=== PATIENT | female | born 1940 | race Caucasian/White ===

== ENCOUNTER 2018-04-10 10:39 | Inpatient (IN) | payer OTHER ==
--- NOTE | 2018-04-10 10:49 | EDPHY ---
H & P Time Seen by Provider: 04/10/18 10:49 HPI/ROS: Chief complaint. Shortness of breath, chest pain HPI. 78-year-old female here by EMS with chest pain and shortness of breath began 1 hr ago. She had previously been on Bystolic for blood pressure but she has been off for 2 months. She has nephrotic syndrome and has had previous pleural effusions with history of thoracentesis. She has had increased leg swelling the past 2 weeks. Chest pain is worse with exertion. She has dyspnea on exertion. No radiation of her chest discomfort. No abdominal pain. Patient is unsure whether she took her blood pressure medication today ROS 10 systems were reviewed and negative with the exception of the elements mentioned in the history of present illness Past Medical/Surgical History: Past medical history significant for nephrotic syndrome with fluid in lungs, dyslipidemia, hypothyroid, hypertension Social History: Single, nonsmoker, no alcohol Physical Exam: General Appearance: Alert well-developed female moderate distress vital signs show elevated blood pressure 191 over 118. Heart rate 112. Eyes: Pupils equal and round no pallor or injection. ENT, Mouth: Mucous membranes are moist. Respiratory: Decreased breath sounds on right. Cardiovascular: Regular rate and rhythm with tachycardia Gastrointestinal: Abdomen is soft and nontender, no masses, bowel sounds normal. Neurological: Awake and alert, sensory and motor exams grossly normal. Skin: Warm and dry, no rashes. Musculoskeletal: Neck is supple nontender. Extremities pedal edema Psychiatric: Patient is oriented X 3, there is no agitation. Constitutional: Initial Vital Signs Temperature (C) 36.4 C 04/10/18 10:49 Heart Rate 112 H 04/10/18 10:49 Respiratory Rate 22 H 04/10/18 10:49 Blood Pressure 191/118 H 04/10/18 10:49 O2 Sat (%) 96 04/10/18 10:49 O2 Delivery Mode Room Air O2 (L/minute) 2 Allergies/Adverse Reactions: No Known Allergies Allergy (Verified 04/10/18 11:41) Home Medications: Medication Instructions Recorded Bumetanide [Bumex (*)] 1 mg PO BID@,18 04/10/18 Cholecalciferol Vit D3 [Vitamin D3 1,000 units PO DAILY 04/10/18 (*)] Levothyroxine [Synthroid 75 mcg 75 mcg PO DAILY 04/10/18 (*)] Multivitamins [Multivitamin (*)] 1 each PO DAILY 04/10/18 PARoxetine HCL [Paxil 10mg (*)] 10 mg PO DAILY 04/10/18 Rosuvastatin Calcium [Crestor 10mg 10 mg PO DAILY18 04/10/18 (RX)] amLODIPine BESYLATE [Norvasc 5 mg 5 mg PO DAILY 04/10/18 (*)] clonIDINE [Catapres (*)] 0.2 mg PO DAILY18 04/10/18 hydrALAZINE [Apresoline 25 mg (RX)] 25 mg PO BID@09,18 04/10/18 Medical Decision Making - Diagnostics EKG Interpretation: EKG interpreted by me shows sinus tachycardia normal interval and axis. QRS is normal there is no significant ST elevation or depression. No arrhythmia. Rate is 112 Imaging Results: Imaging Impressions Chest X-Ray 04/10/18 10:58 Impression: 1. Small right pleural effusion with right lower lobe and middle lobe pneumonia versus atelectasis. 2. Recommend CT chest with contrast evaluation. Procedures: IV normal saline, oxygen, monitor Old records are reviewed and there are none. History is from patient's daughter ED Course/Re-evaluation: On serial evaluations patient actually looks much better with supplemental oxygen. The patient and daughter and I discussed imaging, EKG, laboratory evaluation. We discussed treatment plan including recommendation for admission. She expresses understanding and agreement I consulted discussed case with hospitalist, who agrees to the admission Differential Diagnosis: Right pleural effusion which is apparently recurrent. Likely secondary to nephrotic syndrome. I considered acute coronary syndrome as well. No evidence for pneumonia - Data Points Laboratory Results: Laboratory Results 04/10/18 10:50 04/10/18 10:50 04/10/18 04/10/18 04/10/18 11:02 10:50 10:50 WBC RBC Hgb Hct MCV MCH MCHC RDW Plt Count MPV Neut % (Auto) Lymph % (Auto) [place] % (Auto) Eos % (Auto) Baso % (Auto) Nucleat RBC Rel Count Absolute Neuts (auto) Absolute Lymphs (auto) Absolute Monos (auto) Absolute Eos (auto) Absolute Basos (auto) Absolute Nucleated RBC Immature Gran % Immature Gran # PT REJ INR REJ APTT REJ Sodium Potassium Chloride Carbon Dioxide Anion Gap BUN Creatinine Estimated GFR Glucose Calcium Total Bilirubin 0.2 mg/dL mg/dL (0.1-1.4) POC Troponin I 0.04 ng/mL ng/mL (0.00-0.08) NT-Pro-B Natriuret Pep 04/10/18 04/10/18 10:50 10:50 WBC 8.75 10^3/uL 10^3/uL (3.80-9.50) RBC 4.72 10^6/uL 10^6/uL (4.18-5.33) Hgb 13.8 g/dL g/dL (12.6-16.3) Hct 41.2 % % (38.0-47.0) MCV 87.3 fL fL (81.5-99.8) MCH 29.2 pg pg (27.9-34.1) MCHC 33.5 g/dL g/dL (32.4-36.7) RDW 14.2 % % (11.5-15.2) Plt Count 420 10^3/uL H 10^3/uL (150-400) MPV 9.7 fL fL (8.7-11.7) Neut % (Auto) 57.6 % % (39.3-74.2) Lymph % (Auto) 27.9 % % (15.0-45.0) [place] % (Auto) 12.9 % % (4.5-13.0) Eos % (Auto) 0.2 % L % (0.6-7.6) Baso % (Auto) 0.8 % % (0.3-1.7) Nucleat RBC Rel Count 0.0 % % (0.0-0.2) Absolute Neuts (auto) 5.04 10^3/uL 10^3/uL (1.70-6.50) Absolute Lymphs (auto) 2.44 10^3/uL 10^3/uL (1.00-3.00) Absolute Monos (auto) 1.13 10^3/uL H 10^3/uL (0.30-0.80) Absolute Eos (auto) 0.02 10^3/uL L 10^3/uL (0.03-0.40) Absolute Basos (auto) 0.07 10^3/uL 10^3/uL (0.02-0.10) Absolute Nucleated RBC 0.00 10^3/uL 10^3/uL (0-0.01) Immature Gran % 0.6 % % (0.0-1.1) Immature Gran # 0.05 10^3/uL 10^3/uL (0.00-0.10) PT INR APTT Sodium 134 mEq/L L mEq/L (135-145) Potassium 3.5 mEq/L mEq/L (3.5-5.2) Chloride 108 mEq/L mEq/L (97-110) Carbon Dioxide 24 mEq/l mEq/l (22-31) Anion Gap 2 mEq/L L mEq/L (6-14) BUN 15 mg/dL mg/dL (7-23) Creatinine 1.0 mg/dL mg/dL (0.6-1.0) Estimated GFR 54 Glucose 97 mg/dL mg/dL (70-100) Calcium 8.5 mg/dL mg/dL (8.5-10.4) Total Bilirubin POC Troponin I NT-Pro-B Natriuret Pep 822 pg/mL H pg/mL (0-450) Point of Care Test Results: Chemistry 04/10/18 11:02 POC Troponin I 0.04 ng/mL ng/mL (0.00-0.08) Departure - Departure Disposition: [facility] Inpatient Acute Clinical Impression: Pleural effusion Chest pain Qualifiers: Chest pain type: unspecified Qualified Code(s): R07.9 - Chest pain, unspecified Condition: Serious
[2018-04-10 11:07] LABS: PLATELET COUNT 420 10^3/uL (150-400)
[2018-04-10 12:56] LABS: INR 0.88 (0.83-1.16); PROTIME(PATIENT) 12.2 SEC (12.0-15.0)
[2018-04-10] MEDS ORDERED: ONDANSETRON 4 MG/2 ML VIAL IVP PRN (13:41)
[2018-04-10] MEDS ORDERED: oxyCODONE IR 5 MG TAB PO PRN (13:41)
--- NOTE | 2018-04-10 14:15 | PDGENHP ---
History and Physical - Chief Complaint shortness of breath - History of Present Illness 78yo F with nephrotic syndrome, dementia, HTN, prior right pleural effusion presents with acute onset shortness of breath this morning. Patient not reliable historian, daughter provides some ancillary history. She has intermittently complained of shortness of breath since moving from [place] to [place] in January. This morning had acute change and having trouble catching her breath. She has had worsening swelling in both legs for several weeks. Denies chest pain, pleuritic pain, orthopnea. No cough or fevers/chills. She has not yet established with a manager deli in the area. Daughter reports that pleural effusion on right was drained 07/2017. It was thought that this was related to her nephrotic syndrome. In the ED, she was noted to be tachycardic. A CXR shows a right sided moderate sized pleural effusion. She is being admitted for further diagnostics and evaluation. History Information - Allergies/Home Medication List Allergies/Adverse Reactions: No Known Allergies Allergy (Verified 04/10/18 11:41) Home Medications: Bumetanide [Bumex (*)] 1 mg PO BID@,04/10/18 [Last Taken 04/10/18 09:00] Cholecalciferol Vit D3 [Vitamin D3 (*)] 1,000 units PO DAILY 04/10/18 [Last Taken Unknown] Levothyroxine [Synthroid 75 mcg (*)] 75 mcg PO DAILY 04/10/18 [Last Taken ] Multivitamins [Multivitamin (*)] 1 each PO DAILY 04/10/18 [Last Taken Unknown] PARoxetine HCL [Paxil 10mg (*)] 10 mg PO DAILY 04/10/18 [Last Taken 04/10/18] Rosuvastatin Calcium [Crestor 10mg (RX)] 10 mg PO DAILY18 04/10/18 [Last Taken 04/09/18] amLODIPine BESYLATE [Norvasc 5 mg (*)] 5 mg PO DAILY 04/10/18 [Last Taken ] clonIDINE [Catapres (*)] 0.2 mg PO DAILY18 04/10/18 [Last Taken 04/09/18] hydrALAZINE [Apresoline 25 mg (RX)] 25 mg PO BID@,18 04/10/18 [Last Taken 09:00] I have personally reviewed and updated: family history, medical history, social history, surgical history - Past Medical History Additional medical history: per HPI in addition to hyperlipidemia, depression - Surgical History Reports: no pertinent surgical hx - Family History Additional family history: mother and father both with CAD s/p CABG, HTN. no history of kidney disease - Social History Smoking Status: Former smoker Alcohol Use: None Drug Use: Marijuana Additional social history: Lives independently at [place]. Daughter is MDPOA. Review of Systems Review of Systems: ROS: 10pt was reviewed & negative except for what was stated in HPI & below Physical Exam Physical Exam: Temp Pulse Resp BP Pulse Ox 36.3 C 77 18 166/89 H 97 04/10/18 13:34 04/10/18 13:34 04/10/18 13:34 04/10/18 13:34 04/10/18 13:34 O2 (L/minute) 2 Constitutional: no apparent distress, appears nourished, not in pain Eyes: PERRL, anicteric sclera, EOMI Ears, Nose, Mouth, Throat: moist mucous membranes, hearing normal, ears appear normal, no oral mucosal ulcers Cardiovascular: regular rate and rhythym, no murmur, rub, or gallop, edema (R>L) Respiratory: no respiratory distress, reduced air movement (right base), No expiratory wheeze, No inspiratory crackles Gastrointestinal: normoactive bowel sounds, soft, non-tender abdomen, no palpable masses Genitourinary: no bladder fullness, no bladder tenderness Skin: warm, normal color, no rashes or abrasions, no fluctuance, no induration, No mottled Musculoskeletal: full muscle strength, no muscle tenderness, normal joint ROM, no joint effusions Neurologic: other (alert, not oriented) Psychiatric: encephalopathic Lab Data & Imaging Review 04/10/18 10:50 04/10/18 10:50 WBC 8.75 10^3/uL (3.80-9.50) 04/10/18 10:50 RBC 4.72 10^6/uL (4.18-5.33) 04/10/18 10:50 Hgb 13.8 g/dL (12.6-16.3) 04/10/18 10:50 Hct 41.2 % (38.0-47.0) 04/10/18 10:50 MCV 87.3 fL (81.5-99.8) 04/10/18 10:50 MCH 29.2 pg (27.9-34.1) 04/10/18 10:50 MCHC 33.5 g/dL (32.4-36.7) 04/10/18 10:50 RDW 14.2 % (11.5-15.2) 04/10/18 10:50 Plt Count 420 10^3/uL (150-400) H 04/10/18 10:50 MPV 9.7 fL (8.7-11.7) 04/10/18 10:50 Neut % (Auto) 57.6 % (39.3-74.2) 04/10/18 10:50 Lymph % (Auto) 27.9 % (15.0-45.0) 04/10/18 10:50 Hunt % (Auto) 12.9 % (4.5-13.0) 04/10/18 10:50 Eos % (Auto) 0.2 % (0.6-7.6) L 04/10/18 10:50 Baso % (Auto) 0.8 % (0.3-1.7) 04/10/18 10:50 Nucleat RBC Rel Count 0.0 % (0.0-0.2) 04/10/18 10:50 Absolute Neuts (auto) 5.04 10^3/uL (1.70-6.50) 04/10/18 10:50 Absolute Lymphs (auto) 2.44 10^3/uL (1.00-3.00) 04/10/18 10:50 Absolute Monos (auto) 1.13 10^3/uL (0.30-0.80) H 04/10/18 10:50 Absolute Eos (auto) 0.02 10^3/uL (0.03-0.40) L 04/10/18 10:50 Absolute Basos (auto) 0.07 10^3/uL (0.02-0.10) 04/10/18 10:50 Absolute Nucleated RBC 0.00 10^3/uL (0-0.01) 04/10/18 10:50 Immature Gran % 0.6 % (0.0-1.1) 04/10/18 10:50 Immature Gran # 0.05 10^3/uL (0.00-0.10) 04/10/18 10:50 PT 12.2 SEC (12.0-15.0) 04/10/18 12:30 INR 0.88 (0.83-1.16) 04/10/18 12:30 APTT 33.5 SEC (23.0-38.0) 04/10/18 12:30 D-Dimer 2.43 ug/mLFEU (0.00-0.50) H 04/10/18 12:30 VBG Lactic Acid 0.8 mmol/L (0.7-2.1) 04/10/18 11:55 Sodium 134 mEq/L (135-145) L 04/10/18 10:50 Potassium 3.5 mEq/L (3.5-5.2) 04/10/18 10:50 Chloride 108 mEq/L (97-110) 04/10/18 10:50 Carbon Dioxide 24 mEq/l (22-31) 04/10/18 10:50 Anion Gap 2 mEq/L (6-14) L 04/10/18 10:50 BUN 15 mg/dL (7-23) 04/10/18 10:50 Creatinine 1.0 mg/dL (0.6-1.0) 04/10/18 10:50 Estimated GFR 54 04/10/18 10:50 Glucose 97 mg/dL (70-100) 04/10/18 10:50 Calcium 8.5 mg/dL (8.5-10.4) 04/10/18 10:50 Total Bilirubin 0.2 mg/dL (0.1-1.4) 04/10/18 10:50 POC Troponin I 0.04 ng/mL (0.00-0.08) 04/10/18 11:02 NT-Pro-B Natriuret Pep 822 pg/mL (0-450) H 04/10/18 10:50 Interpretation: CXR: right pleural effusion, mild increase in pulmonary vascularity EKG additional interpertation: ECG: sinus tachycardia, no right heart strain or ischemic changes Assessment & Plan Assessment: 78yo F with nephrotic syndrome, dementia, HTN, prior right pleural effusion presents with acute onset shortness of breath this morning found to have pleural effusion and elevated d-dimer. Plan: 1. Dyspnea: With acute onset, elevated d-dimer, nephrotic syndrome, and pleural effusion, necessary to rule out PE. CT will also give us more information on pleural effusion. - CTA chest - May need thoracentesis pending above 2. Bilateral leg edema: R>L - Check doppler ultrasound and TTE - Continue home diuretic for now, consider switching to IV pending results of CTA 3. HTN: BP markedly elevated on admit. - Resume home meds, hydralazine PRN 4. ? Nephrotic syndrome: Creatinine 1.0 - Check urine protein and creatinine - Has renal follow up 05/09 with [facility] 5. Dementia: At baseline per daughter. 6. Hypothyroid: Home LT4 replacement. VTE ppx: LMWH Code: full per discussion today Diet: regular Dispo: Admit under observation
[2018-04-10] MEDS ORDERED: IOHEXOL 350mgI/ML (OMNIPAQUE) 150 ML BTL IV ONE (14:50)
--- NOTE | 2018-04-10 15:06 | CPEKG ---
Test Reason : OPEN Blood Pressure : / mmHG Vent. Rate : 112 BPM Atrial Rate : 113 BPM P-R Int : 119 ms QRS Dur : 091 ms QT Int : 395 ms P-R-T Axes : 056 045 045 degrees QTc Int : 540 ms Sinus tachycardia Nonspecific repol abnormality, diffuse leads Prolonged QT interval Confirmed by Philipp Simpson ([id number]) on 04/10/2018 3:06:10 PM Referred By: Philipp Simpson Confirmed By:Philipp Simpson
--- NOTE | 2018-04-10 16:31 | ECHO ---
[email or web address] [address] Main: [phone] Fax: [email or web address] Echocardiogram Name: ZULEYMA WILDER MR#: [id number] Study Date: 04/10/2018 Study Time: 02:44 PM Date of : 1940 Age: 78 year(s) Height: 160 cm (63 in.) Weight: 56.25 kg (124 lb.) BSA: 1.58 m2 Gender: Female Examination: Echo Indication: Shortness of breath, Known pleural effusion. Image Quality: Contrast: Requested by: Behzad Black BP: / Heart Rate: Rhythm: Indication: Shortness of breath, Known pleural effusion. Procedure Staff Community Organizer: Ryley Brennan RDCS Reading Physician: Kareem Rodriguez MD Requesting Provider: Conclusions: Normal size left ventricle. Global hypercontractility of the left ventricle. EF is 75 %. No regional wall motion abnormality. Grade 1 diastolic dysfunction (abnormal relaxation). Normal RV function. The left atrium is mildly dilated. The right atrium is normal in size. Mild mitral valve regurgitation is present. There is no aortic valve regurgitation. No aortic valve stenosis is present. There is a small circumfrential pericardial effusion with echogenicity within. There is no evidence of tamponade. Measurements: Chambers Valvular Assessment AV/MV Valvular Assessment TV/PV Normal Normal Normal Name Value Range Name Value Range Name Value Range Ao Ebony (MM): 2.7 cm (2.2 cm-3.7 AV Vmax: 1.53 m/s (1 m/s-1.7 PV Vmax: 1.48 m/s (0.6 m/s-0.9 cm) m/s) m/s) IVSd (2D): 0.8 cm (0.6 cm-1.1 AV maxP mmHg ( - ) PV PGmax: 9 mmHg ( - ) cm) LVOT Vmax: 1.03 m/s (0.7 m/s-1.1 LVDd (2D): 3.4 cm (3.9 cm-5.3 m/s) cm) MV E Vmax: 0.60 m/s ( - ) LVDs (2D): 2.0 cm (2.1 cm-4 MV A Vmax: 1.10 m/s ( - ) cm) MV E/A: 0.55 ( - ) LVPWd (2D): 0.9 cm ( - ) LVEF (2D): 75 (>=54 %) Continued Measurements: Patient: ZULEYMA WILDER Study Date: 04/10/2018 Page 1 of 2 02:44 PM Chambers Valvular Assessment AV/MV Name Value Name Value LADs Lon.9 cm MV E' Septal: 0.05 m/s LA Area: 18.2 cm2 MV E/E' Septal: 13.10 LA Volume: 53 ml MV E/E' Lateral: 13.70 LA Volume Index: 33.5 ml/m2 Findings: Left Ventricle: Normal size left ventricle. No LV hypertrophy. Global hypercontractility of the left ventricle. EF is 75 %. No regional wall motion abnormality. Grade 1 diastolic dysfunction (abnormal relaxation). Right Ventricle: Normal size right ventricle. Normal RV function. Left Atrium: The left atrium is mildly dilated. Right Atrium: The right atrium is normal in size. Mitral Valve: There is mild thickening of the mitral valve leaflets. Mild mitral annular calcification. Mild mitral valve regurgitation is present. Aortic Valve: The aortic valve is tri-leaflet. Moderate aortic cusp calcification is present. There is no aortic valve regurgitation. No aortic valve stenosis is present. Tricuspid Valve: The tricuspid valve is normal in appearance and function. Pulmonary artery pressure is not obtained due to inadequate TR jet. Pulmonic Valve: The pulmonic valve is normal in appearance and function. Aorta: The aorta is normal. Pericardium: There is a small circumfrential pericardial effusion with echogenicity within. There is no evidence of tamponade. (No Signature Object) Patient: ZULEYMA WILDER Study Date: 04/10/2018 Page 2 of 2 02:44 PM [id number]
[2018-04-10] MEDS: BUMETANIDE 1 MG TAB PO SCH (17:52)
[2018-04-10] MEDS: ROSUVASTATIN CALCIUM 10 MG TAB PO SCH (17:54)
[2018-04-10] MEDS ORDERED: hydrALAZINE 25 MG TAB PO SCH (18:00)
[2018-04-10] MEDS: MELATONIN 3 MG TAB PO SCH (22:34)
[2018-04-10] MEDS: hydrALAZINE 25 MG TAB PO PRN (23:25)
[2018-04-11 05:45] LABS: PLATELET COUNT 269 10^3/uL (150-400)
[2018-04-11] MEDS: ENOXAPARIN 40 MG/0.4 ML SYR SC SCH (07:55)
[2018-04-11] MEDS: BUMETANIDE 1 MG TAB PO SCH ×2 (07:59→17:23)
[2018-04-11] MEDS: LEVOTHYROXINE 75 MCG TAB PO SCH (07:59)
[2018-04-11] MEDS: PARoxetine HCL 10 MG TAB PO SCH (07:59)
[2018-04-11] MEDS: amLODIPine BESYLATE 5 MG TAB PO SCH (07:59)
[2018-04-11] MEDS: hydrALAZINE 25 MG TAB PO PRN (10:35)
[2018-04-11] MEDS ORDERED: LIDOCAINE 1% 300 MG/30 ML SDV ONE (11:23)
--- NOTE | 2018-04-11 12:04 | HOSPPROG ---
Hospitalist Progress Note Assessment/Plan: 78yo F with nephrotic syndrome, dementia, HTN, prior right pleural effusion presents with acute onset shortness of breath this morning found to have pleural effusion and elevated d-dimer. 1. Dyspnea: Suspect r/t pleural effusion as she's had drained before with symptomatic improvement. She is not hypoxic. - Planning on diagnostic + therapeutic thoracentesis today 2. Bilateral pleural effusions: R>L. Recurrent issue. D/t nephrosis + diastolic dysfunction. - Thoracentesis as above. Sending for usual studies and cytology 3. Nephrotic syndrome: Creatinine 1.0-1.1. Spot urine protein:Cr >10. - Starting lisinopril 10mg daily - Has renal follow up 05/09 with [facility] 4. Diastolic dysfunction: Noted on TTE - Start lasix 20mg PO daily tomorrow 5. HTN: Worsened today - Adding ACEi, continue home meds, hydralazine PRN 6. Dementia: At baseline per daughter. 7. Hypothyroid: Home LT4 replacement. VTE ppx: LMWH Code: full Diet: regular Dispo: Switch to inpatient. Possibly discharge tomorrow. Subjective: Still short of breath this morning. Denies chest pain. CT negative for PE. Objective: Vital Signs Temp Pulse Resp BP Pulse Ox 36.6 C 89 18 178/96 H 96 04/11/18 11:23 04/11/18 11:23 04/11/18 11:23 04/11/18 11:23 04/11/18 11:23 Microbiology 04/10/18 18:32 Respiratory Panel (PCR) - Final Nasal, Sinus - Swab No Organism Detected By Pcr Laboratory Results 04/11/18 05:13 04/11/18 05:13 04/10/18 04/11/18 04/12/18 05:59 05:59 05:59 Intake Total 650 Output Total 800 100 Balance -150 -100 PT 12.2 SEC (12.0-15.0) 04/10/18 12:30 INR 0.88 (0.83-1.16) 04/10/18 12:30 - Physical Exam Constitutional: no apparent distress, appears nourished, not in pain Eyes: PERRL, anicteric sclera, EOMI Ears, Nose, Mouth, Throat: moist mucous membranes, hearing normal, ears appear normal, no oral mucosal ulcers Cardiovascular: regular rate and rhythym, no murmur, rub, or gallop Respiratory: no respiratory distress, reduced air movement (decreased at right base) Gastrointestinal: normoactive bowel sounds, soft, non-tender abdomen, no palpable masses Genitourinary: no bladder fullness, no bladder tenderness, no renal bruits Skin: no rashes or abrasions, no fluctuance, no induration Musculoskeletal: full muscle strength Neurologic: other (alert, intermittently disoriented) Psychiatric: encephalopathic ICD10 Worksheet Patient Problems: Problems Problem Status Onset Chest pain Acute Pleural effusion Acute
[2018-04-11] MEDS: LISINOPRIL 10 MG TAB PO SCH (14:10)
[2018-04-11] MEDS ORDERED: hydrALAZINE 25 MG TAB PO PRN (15:36)
--- NOTE | 2018-04-11 16:39 | ASMTCMCOM ---
CM Note CM Note Notes: Pt admitted to hospital for pleural effusion. She is from [place] but has recently moved to [place]. She lives at [facility] and has dementia. She has a caregiver come once a week to walk her and help with laundry. Per PT/OT may need homecare, CM to discuss with daughter DC Plan: Homecare Date Signed: 04/11/2018 04:39 PM Electronically Signed By:Jeannie Fernandez RN
[2018-04-11] MEDS: ROSUVASTATIN CALCIUM 10 MG TAB PO SCH (17:23)
--- NOTE | 2018-04-11 18:24 | PDMN ---
Medical Necessity Medical necessity: [facility] M540 Pleural Effusion, A-2days: 78 yo initially presented w/ SOB dx w/ B/L pleural effusions w/ R>L, recurrent, requiring thoracentesis. BC and aspirate cx/gram stain pending, pt consistently hypertensive today 190s/100s and MD notes state pt still dyspneac this morning requiring additional MN for monitoring and tx. Hx nephrotic syndrome, dementia , HTN, prior R pleural effusion, diastolic dysfunction. Change to IP status @1721 per MD order
[2018-04-11] MEDS: MELATONIN 3 MG TAB PO SCH (22:49)
[2018-04-12] MEDS: FUROSEMIDE 20 MG TAB PO SCH (08:37)
[2018-04-12] MEDS: amLODIPine BESYLATE 5 MG TAB PO SCH (08:38)
[2018-04-12] MEDS: PARoxetine HCL 10 MG TAB PO SCH (08:38)
[2018-04-12] MEDS: LEVOTHYROXINE 75 MCG TAB PO SCH (08:38)
[2018-04-12] MEDS: BUMETANIDE 1 MG TAB PO SCH ×2 (08:38→17:02)
[2018-04-12] MEDS: LISINOPRIL 10 MG TAB PO SCH (08:38)
[2018-04-12] MEDS: ENOXAPARIN 40 MG/0.4 ML SYR SC SCH (08:41)
[2018-04-12] MEDS: ONDANSETRON DISINTEGRATING 4 MG TAB PO PRN ×2 (08:53→13:07)
--- NOTE | 2018-04-12 13:59 | HOSPPROG ---
Hospitalist Progress Note Assessment/Plan: 78yo F with nephrotic syndrome, dementia, HTN, prior right pleural effusion presents with acute onset shortness of breath found to have pleural effusion and elevated d-dimer. First encounter, chart reviewed. #Dyspnea: - Resolved - Suspect r/t pleural effusion - diagnostic + therapeutic thoracentesis performed #Bilateral pleural effusions: - R>L. Recurrent issue. D/t nephrosis + diastolic dysfunction. - Thoracentesis done Sending for usual studies and cytology - transdutative, cx pending - start lasix, is already on bumex at home #Dizzy - in setting of decreased BP from normal - cont supportive care #Nephrotic syndrome: - Creatinine 1.0-1.1. Spot urine protein:Cr >10. - Started lisinopril 10mg daily - Has renal follow up 05/09 with [facility] #Diastolic dysfunction: - Noted on TTE - Start lasix 20mg PO daily today #HTN: - improving - ACEi, continue home meds, hydralazine PRN, lasix #Dementia: - At baseline #Hypothyroid: - Home LT4 replacement VTE ppx: LMWH Code: full Diet: regular Dispo: Switch to inpatient. Possibly discharge tomorrow. Subjective: Up to bedside commode. C/O some nausea. No pain. Objective: Vital Signs Temp Pulse Resp BP Pulse Ox 36.7 C 95 16 132/90 H 91 L 04/12/18 11:51 04/12/18 11:51 04/12/18 11:51 04/12/18 11:51 04/12/18 11:51 Laboratory Results 04/12/18 04:52 04/11/18 04/12/18 04/13/18 05:59 05:59 05:59 Intake Total 662 Output Total 275 400 Balance 387 -400 PT 12.2 SEC (12.0-15.0) 04/10/18 12:30 INR 0.88 (0.83-1.16) 04/10/18 12:30 - Physical Exam Constitutional: appears nourished, not in pain, chronically ill appearing Eyes: PERRL, anicteric sclera, EOMI Ears, Nose, Mouth, Throat: moist mucous membranes, hearing normal, ears appear normal Cardiovascular: regular rate and rhythym, edema, No JVD Respiratory: no respiratory distress, no rales or rhonchi, reduced air movement Gastrointestinal: normoactive bowel sounds, No tenderness, No ascites Skin: warm, normal color, No mottled Musculoskeletal: normal joint ROM, no joint effusions, generalized weakness Psychiatric: not anxious, not encephalopathic, poor insight, poor judgement, poor memory ICD10 Worksheet Patient Problems: Problems Problem Status Onset Chest pain Acute Pleural effusion Acute
[2018-04-12] MEDS: ROSUVASTATIN CALCIUM 10 MG TAB PO SCH (17:03)
[2018-04-12] MEDS: MELATONIN 3 MG TAB PO SCH (20:45)
[2018-04-13] MEDS: PARoxetine HCL 10 MG TAB PO SCH (08:18)
[2018-04-13] MEDS: amLODIPine BESYLATE 5 MG TAB PO SCH (08:18)
[2018-04-13] MEDS: BUMETANIDE 1 MG TAB PO SCH ×2 (08:18→18:19)
[2018-04-13] MEDS: ENOXAPARIN 40 MG/0.4 ML SYR SC SCH (08:18)
[2018-04-13] MEDS: LEVOTHYROXINE 75 MCG TAB PO SCH (08:18)
[2018-04-13] MEDS: FUROSEMIDE 20 MG TAB PO SCH (08:18)
[2018-04-13] MEDS: LISINOPRIL 10 MG TAB PO SCH (08:18)
--- NOTE | 2018-04-13 11:47 | PDCONSULT ---
Ribbon Tier Note: Assessment/Plan: Nephrotic syndrome: pt with nephrotic range proteinuria on urine PCR, Cr stable at 1.0, unknown baseline. - Will treat BP as below. - Will check albumin. - Will start serological workup, including ALLAN, ANCA, RF, anti-GBM, SPEP/UPEP ( noted low anion gap). - Will check renal US. - Pt will likely need a renal biopsy at some time for diagnosis. - Will continue to monitor. HTN: uncontrolled and labile, likely as she has been getting clonidine orally only once daily. - Will d/c clonidine. - Will increase lisinopril. - Will restart on hydralazine at TID dosing, dose can be increased if needed. - Will d/c Lasix as pt is on Bumex, that dosage can be adjusted if needed. - Can increase amlodipine also if needed. Thank you for the interesting consult. Nephrology will continue to follow, please call if you have any additional questions or concerns. H & P Stated Complaint: Upper abdo pn with breathing, tachypnic and shallow, good skin params Time Seen by Provider: 04/10/18 10:49 HPI/ROS: HPI: Ms. Gloria is a 78 yo F with h/o HTN and pleural effusion who presented to ER with complaints of dyspnea. Pt is not a good historian, history obtained from chart. Pt reportedly moved here from [place] in January. In 07/2017, she had a pleural effusion that was drained, was thought to be due to nephrotic syndrome. Pt states that she has heard she had proteinuria but not sure how long or how severe, was set up for new appointment with Dr. Rubi in clinic on 05/09/18. Pt was found again to have R sided effusion, was drained and she is feeling better. She indeed does have nephrotic syndrome, Cr stable around 1.0 currently. She denies any swelling in legs, rash, NSAID use, but she is very unclear on all of it. Her BP has been elevated and labile, her home hydralazine has been held and she is getting clonidine only once a day, may have been her home regimen. ROS: positive per HPI, rest of 10-point ROS negative Source: Patient, RN/MD - Personal History Current Tetanus/Diphtheria Vaccine: Unsure - Medical/Surgical History Hx Asthma: No Hx Chronic Respiratory Disease: No Hx Diabetes: No Hx Cardiac Disease: No Hx Renal Disease: No Hx Cirrhosis: No Hx Alcoholism: No Hx HIV/AIDS: No Hx Splenectomy or Spleen Trauma: No Other PMH: Anxiety, nephrotic syndrome, HTN, abnormal retina tissue bilaterally , right hip replacement - Family History Significant Family History: No pertinent family hx - Social History Smoking Status: Former smoker - Physical Exam Exam: General: alert and oriented, no acute distress Eyes: EOMI, PERRL OP: Clear, MMM CV: RRR, +1 edema BLE Resp: nonlabored respirations on RA, CTAB Abd: Soft, NT/ND Neuro: CN II-XII grossly intact, no asterixis Psych: cooperative, appropriate mood and affect Skin: C/D/I, no rash Constitutional: Initial Vital Signs Temperature (C) 36.4 C 04/10/18 10:49 Heart Rate 112 H 04/10/18 10:49 Respiratory Rate 22 H 04/10/18 10:49 Blood Pressure 191/118 H 04/10/18 10:49 O2 Sat (%) 96 04/10/18 10:49 O2 Delivery Mode Room Air O2 (L/minute) 1.5 Allergies/Adverse Reactions: No Known Allergies Allergy (Verified 04/10/18 11:41) Home Medications: Medication Instructions Recorded Bumetanide [Bumex (*)] 1 mg PO BID@,18 04/10/18 Cholecalciferol Vit D3 [Vitamin D3 1,000 units PO DAILY 04/10/18 (*)] Levothyroxine [Synthroid 75 mcg 75 mcg PO DAILY 04/10/18 (*)] Multivitamins [Multivitamin (*)] 1 each PO DAILY 04/10/18 PARoxetine HCL [Paxil 10mg (*)] 10 mg PO DAILY 04/10/18 Rosuvastatin Calcium [Crestor 10mg 10 mg PO DAILY18 04/10/18 (RX)] amLODIPine BESYLATE [Norvasc 5 mg 5 mg PO DAILY 04/10/18 (*)] clonIDINE [Catapres (*)] 0.2 mg PO DAILY18 04/10/18 hydrALAZINE [Apresoline 25 mg (RX)] 25 mg PO BID@09,18 04/10/18 Lab and Imaging 04/11/18 05:13 04/12/18 04:52 WBC 5.92 10^3/uL (3.80-9.50) 04/11/18 05:13 RBC 3.82 10^6/uL (4.18-5.33) L 04/11/18 05:13 Hgb 11.0 g/dL (12.6-16.3) L 04/11/18 05:13 Hct 34.4 % (38.0-47.0) L 04/11/18 05:13 MCV 90.1 fL (81.5-99.8) 04/11/18 05:13 MCH 28.8 pg (27.9-34.1) 04/11/18 05:13 MCHC 32.0 g/dL (32.4-36.7) L 04/11/18 05:13 RDW 14.3 % (11.5-15.2) 04/11/18 05:13 Plt Count 269 10^3/uL (150-400) 04/11/18 05:13 MPV 9.9 fL (8.7-11.7) 04/11/18 05:13 Neut % (Auto) 59.7 % (39.3-74.2) 04/11/18 05:13 Lymph % (Auto) 26.0 % (15.0-45.0) 04/11/18 05:13 [place] % (Auto) 12.5 % (4.5-13.0) 04/11/18 05:13 Eos % (Auto) 0.5 % (0.6-7.6) L 04/11/18 05:13 Baso % (Auto) 0.8 % (0.3-1.7) 04/11/18 05:13 Nucleat RBC Rel Count 0.0 % (0.0-0.2) 04/11/18 05:13 Absolute Neuts (auto) 3.53 10^3/uL (1.70-6.50) 04/11/18 05:13 Absolute Lymphs (auto) 1.54 10^3/uL (1.00-3.00) 04/11/18 05:13 Absolute Monos (auto) 0.74 10^3/uL (0.30-0.80) 04/11/18 05:13 Absolute Eos (auto) 0.03 10^3/uL (0.03-0.40) 04/11/18 05:13 Absolute Basos (auto) 0.05 10^3/uL (0.02-0.10) 04/11/18 05:13 Absolute Nucleated RBC 0.00 10^3/uL (0-0.01) 04/11/18 05:13 Immature Gran % 0.5 % (0.0-1.1) 04/11/18 05:13 Immature Gran # 0.03 10^3/uL (0.00-0.10) 04/11/18 05:13 PT 12.2 SEC (12.0-15.0) 04/10/18 12:30 INR 0.88 (0.83-1.16) 04/10/18 12:30 APTT 33.5 SEC (23.0-38.0) 04/10/18 12:30 D-Dimer 2.43 ug/mLFEU (0.00-0.50) H 04/10/18 12:30 VBG Lactic Acid 0.8 mmol/L (0.7-2.1) 04/10/18 11:55 Sodium 131 mEq/L (135-145) L 04/12/18 04:52 Potassium 3.9 mEq/L (3.5-5.2) 04/12/18 04:52 Chloride 108 mEq/L (97-110) 04/12/18 04:52 Carbon Dioxide 23 mEq/l (22-31) 04/12/18 04:52 Anion Gap 0 mEq/L (6-14) L 04/12/18 04:52 BUN 18 mg/dL (7-23) 04/12/18 04:52 Creatinine 1.0 mg/dL (0.6-1.0) 04/12/18 04:52 Estimated GFR 54 04/12/18 04:52 Glucose 86 mg/dL (70-100) 04/12/18 04:52 Calcium 7.9 mg/dL (8.5-10.4) L 04/12/18 04:52 Total Bilirubin 0.2 mg/dL (0.1-1.4) 04/10/18 10:50 Lactate Dehydrogenase 452 IU/L (313-618) 04/11/18 05:13 POC Troponin I 0.04 ng/mL (0.00-0.08) 04/10/18 11:02 NT-Pro-B Natriuret Pep 822 pg/mL (0-450) H 04/10/18 10:50 Total Protein 3.6 g/dL (6.3-8.2) L 04/11/18 05:13 Ur Random Creatinine 195.3 mg/dL 04/10/18 17:42 U Random Total Protein > 2000 mg/dL (0-11) H 04/10/18 17:42 Fluid pH Cancelled 04/11/18 14:30 Fluid [place] % 27 % 04/11/18 14:30 Fl Pathologist Review César CLEARY MD 04/11/18 14:30 Fluid Total Protein Cancelled 04/10/18 14:30 Pleural Fluid Source PLEURAL 04/11/18 14:30 Pleural Color STRAW (STRAW/YELL) 04/11/18 14:30 Pleural Appearance CLEAR (CLEAR) 04/11/18 14:30 Pleural pH 7.6 (6.8-7.6) 04/11/18 14:30 Pleural WBC 58 /mm3 04/11/18 14:30 Pleural RBC 217 /MM3 04/11/18 14:30 Pleural Neutrophils 3 % 04/11/18 14:30 Pleural Lymphocytes % 70 % 04/11/18 14:30 Pleural Total Protein < 2.0 g/dL 04/11/18 14:30 Pleural LDH 212 IU/L 04/11/18 14:30 Pleural Glucose 91 mg/dL (55-113) 04/11/18 14:30 Cytology RECEIVED 04/11/18 14:30
[2018-04-13] MEDS: hydrALAZINE 10 MG TAB PO SCH ×3 (13:24→20:58)
--- NOTE | 2018-04-13 14:33 | HOSPPROG ---
Hospitalist Progress Note Assessment/Plan: 78yo F with nephrotic syndrome, dementia, HTN, prior right pleural effusion presents with acute onset shortness of breath found to have pleural effusion and elevated d-dimer. #Dyspnea: - Resolved - Suspect r/t pleural effusion - diagnostic + therapeutic thoracentesis performed #Bilateral pleural effusions: - R>L. Recurrent issue. D/t nephrosis + diastolic dysfunction. - Thoracentesis done sent for usual studies and cytology - transudative, cx NGTD - already on bumex at home #Dizzy - in setting of decreased BP from normal - cont supportive care - nephrology consult #Nephrotic syndrome: - nephrology consult, D/W Dr Monge - Creatinine 1.0-1.1. Spot urine protein:Cr >10. - lisinopril 10mg daily - Has renal follow up 05/09 with [facility] - labs ordered - renal US - Pt will likely need a renal biopsy at some time for diagnosis. #HTN: - uncontrolled and labile -See nephrology recs #Diastolic dysfunction: - Noted on TTE #Dementia: - At baseline #Hypothyroid: - Home LT4 replacement VTE ppx: LMWH Code: full Diet: regular Dispo: D/W Pt and daughter Subjective: Still feeling dizzy. No pain. Not feeling well Objective: Vital Signs Temp Pulse Resp BP Pulse Ox 36.8 C 77 16 172/75 H 90 L 04/13/18 11:29 04/13/18 11:29 04/13/18 11:29 04/13/18 11:29 04/13/18 11:29 Laboratory Results 04/12/18 04:52 04/12/18 04/13/18 04/14/18 05:59 05:59 05:59 Intake Total 662 400 Output Total 275 750 300 Balance 387 -350 -300 PT 12.2 SEC (12.0-15.0) 04/10/18 12:30 INR 0.88 (0.83-1.16) 04/10/18 12:30 - Physical Exam Constitutional: chronically ill appearing, uncomfortable, cachectic Eyes: PERRL, anicteric sclera, EOMI Ears, Nose, Mouth, Throat: moist mucous membranes, hearing normal, ears appear normal Cardiovascular: regular rate and rhythym, edema, No JVD Respiratory: no respiratory distress, no rales or rhonchi, reduced air movement Gastrointestinal: normoactive bowel sounds, No tenderness, No ascites Skin: warm, normal color, No mottled Musculoskeletal: normal joint ROM, no joint effusions, generalized weakness Neurologic: AAOx3 Psychiatric: interacting appropriately, poor insight, poor judgement, poor memory ICD10 Worksheet Patient Problems: Problems Problem Status Onset Chest pain Acute Pleural effusion Acute
[2018-04-13 18:10] LABS: HEPATITIS B CORE AB TOTAL NEGATIVE (NEGATIVE)
[2018-04-13] MEDS: ROSUVASTATIN CALCIUM 10 MG TAB PO SCH (18:19)
[2018-04-13 19:33] LABS: HEPATITIS B SURFACE ANTIGEN NEGATIVE (NEGATIVE); HEPATITIS C ANTIBODY TOTAL NEGATIVE (NEGATIVE)
[2018-04-13] MEDS: ACETAMINOPHEN 325 MG TAB PO PRN (20:57)
[2018-04-13] MEDS: MELATONIN 3 MG TAB PO SCH (20:57)
[2018-04-13] MEDS: ONDANSETRON DISINTEGRATING 4 MG TAB PO PRN (21:01)
[2018-04-14] MEDS: amLODIPine BESYLATE 5 MG TAB PO SCH (08:01)
[2018-04-14] MEDS: LISINOPRIL 10 MG TAB PO SCH (08:01)
[2018-04-14] MEDS: PARoxetine HCL 10 MG TAB PO SCH (08:01)
[2018-04-14] MEDS: BUMETANIDE 1 MG TAB PO SCH ×2 (08:01→18:43)
[2018-04-14] MEDS: hydrALAZINE 10 MG TAB PO SCH (08:01)
[2018-04-14] MEDS: LEVOTHYROXINE 75 MCG TAB PO SCH (08:01)
[2018-04-14] MEDS: ENOXAPARIN 40 MG/0.4 ML SYR SC SCH (08:03)
[2018-04-14] MEDS ORDERED: hydrALAZINE 25 MG TAB PO ONE (08:30)
--- NOTE | 2018-04-14 09:54 | ASMTCMCOM ---
CM Note CM Note Notes: Pt had a nephrology consult, BP uncontrolled. She lives at [facility] and has dementia at baseline, dtr Katie very involved. Initially spoke with Katie about home care at [place] but at this time PT/OT recommending SNF. BRIANNA left message for dtr. DC Plan: TBD Date Signed: 04/14/2018 09:54 AM Electronically Signed By:Jeannie Fernandez RN
--- NOTE | 2018-04-14 11:38 | HOSPPROG ---
Hospitalist Progress Note Assessment/Plan: 78yo F with nephrotic syndrome, dementia, HTN, prior right pleural effusion presents with acute onset shortness of breath found to have pleural effusion and elevated d-dimer. #Dyspnea: Suspect r/t pleural effusion, symptoms worse today. Rpt CXR pers reviewed/interp, shows recurrent effusions R>L. Also consider if her dyspnea could be an anginal equivalent. Recent echo reviewed, no WMA. -repeat trop neg, bnp low, EKG non-ischemic -CXR with recurrent effusions, discussed with pulm, likely 2/2 nephrotic syndrome with hypoalbuminemia #Bilateral pleural effusions: 2/2 nephrotic syndrome + diastolic dysfunction, s/ p thoracentesis, fluid is transudative -cont bumex, will add albumin prior to diuretic dosing -added cytology to pleural fluid #Hypoxemia: 2 LPM, likely 2/2 above -repeat CXR as above -wean O2 as able #Nephrotic syndrome: Creatinine 1.0-1.1. Spot urine protein:Cr >10. Albumin 1.7. Renal following - cont lisinopril 10mg daily - cont bumex - Has renal follow up 05/09 with [facility] - Pt will likely need a renal biopsy at some time for diagnosis. #HTN: labile - cont lisinopril - increase hydralazine to 50 mg tid noting persistently elevated BP ( discussed with renal) #Diastolic dysfunction: she is not sure if she takes bumex at home, but receiving BID dosing here - monitor I&O's, daily weights #Dementia: - At baseline #Hypothyroid: - Home LT4 replacement VTE ppx: LMWH Code: full Diet: Na restricted Dispo: cont inpt Subjective: Pt feels poorly today, c/o worsening dyspnea. No CP. No fevers. No worsening peripheral edema. Taking po. Objective: Vital Signs Temp Pulse Resp BP Pulse Ox 36.4 C 84 18 156/81 H 96 04/14/18 11:09 04/14/18 11:09 04/14/18 11:09 04/14/18 11:09 04/14/18 11:09 Laboratory Results 04/14/18 04:35 04/13/18 04/14/18 04/15/18 05:59 05:59 05:59 Intake Total 400 550 Output Total 750 400 Balance -350 150 PT 12.2 SEC (12.0-15.0) 04/10/18 12:30 INR 0.88 (0.83-1.16) 04/10/18 12:30 - Physical Exam Constitutional: no apparent distress Eyes: PERRL Ears, Nose, Mouth, Throat: moist mucous membranes Cardiovascular: regular rate and rhythym Respiratory: no respiratory distress, reduced air movement, other (diminished at bases b/l) Gastrointestinal: normoactive bowel sounds, soft, non-tender abdomen Skin: warm Musculoskeletal: full muscle strength Neurologic: AAOx3 Psychiatric: interacting appropriately ICD10 Worksheet Patient Problems: Problems Problem Status Onset Chest pain Acute Pleural effusion Acute
--- NOTE | 2018-04-14 12:33 | ASMTCMCOM ---
CM Note CM Note Notes: Received call back from dtr and she would like referral sent to [facility]. DC Plan: SNF Date Signed: 04/14/2018 12:33 PM Electronically Signed By:Jeannie Fernandez RN
--- NOTE | 2018-04-14 13:21 | SOAPPROG ---
SOAP Progress Note Assessment/Plan: Assessment/Plan: Nephrotic syndrome: pt with nephrotic range proteinuria on urine PCR, Cr stable at 1.0-1.1, unknown baseline. Albumin low. - Will treat BP as below. - Serological workup pending, especially interested in SPEP/UPEP given low anion gap. - Pt will likely need a renal biopsy at some time for diagnosis. - Will continue to monitor. HTN: uncontrolled and labile, likely as she has been getting clonidine orally only once a day. - Have stopped clonidine. - Lisinopril lincrased and started on hydralazine at TID dosing. - If BP continues to be high this afternoon after all these changes, can increase hydralazine. - Have d/wendie Lasix as pt is on Bumex, that dosage can be adjusted if needed. - Can also increase amlodipine if needed. Subjective: No acute events overnight. Pt having some pain in her L wrist this am. Objective: Vital Signs Temp Pulse Resp BP Pulse Ox 36.4 C 84 18 156/81 H 96 04/14/18 11:09 04/14/18 11:09 04/14/18 11:09 04/14/18 11:09 04/14/18 11:09 Laboratory Results 04/14/18 04:35 04/13/18 04/14/18 04/15/18 05:59 05:59 05:59 Intake Total 400 550 Output Total 750 400 Balance -350 150 PT 12.2 SEC (12.0-15.0) 04/10/18 12:30 INR 0.88 (0.83-1.16) 04/10/18 12:30 General: alert and oriented, no acute distress Eyes: EOMI, PERRL OP: Clear CV: RRR Resp: nonlabored respirations Abd: Soft, NT/ND Ext: trace edema BLE Neuro: CN II-XII Grossly intact, no asterixis Psych: cooperative ICD10 Worksheet Patient Problems: Problems Problem Status Onset Chest pain Acute Pleural effusion Acute
[2018-04-14] MEDS ORDERED: hydrALAZINE 25 MG TAB PO SCH (16:00)
[2018-04-14] MEDS ORDERED: ALBUMIN 25% 100 ML IV ONE (16:42)
[2018-04-14] MEDS ORDERED: BUMETANIDE 1 MG TAB PO SCH (16:44)
[2018-04-14] MEDS: ROSUVASTATIN CALCIUM 10 MG TAB PO SCH (17:39)
[2018-04-14] MEDS: hydrALAZINE 25 MG TAB PO SCH (19:32)
[2018-04-14] MEDS: MELATONIN 3 MG TAB PO SCH (20:32)
[2018-04-14] MEDS: ACETAMINOPHEN 325 MG TAB PO PRN (20:32)
[2018-04-14] MEDS ORDERED: LABETALOL HCL 200 MG TAB PO ONE (23:05)
[2018-04-15] MEDS: ENOXAPARIN 40 MG/0.4 ML SYR SC SCH (09:37)
[2018-04-15] MEDS: LISINOPRIL 10 MG TAB PO SCH (09:38)
[2018-04-15] MEDS: amLODIPine BESYLATE 5 MG TAB PO SCH (09:38)
[2018-04-15] MEDS: PARoxetine HCL 10 MG TAB PO SCH (09:38)
[2018-04-15] MEDS: LEVOTHYROXINE 75 MCG TAB PO SCH (09:38)
[2018-04-15] MEDS: POTASSIUM CL 20 MEQ TAB PO SCH (09:39)
[2018-04-15] MEDS: hydrALAZINE 25 MG TAB PO SCH ×3 (09:39→21:33)
[2018-04-15] MEDS: BUMETANIDE 1 MG TAB PO SCH ×2 (09:39→15:55)
--- NOTE | 2018-04-15 11:03 | SOAPPROG ---
SOAP Progress Note Assessment/Plan: Assessment: Meeting patient for first time. She is not a good historian. I have reviewed data -Severe HTN Likely chronic with small vascular disease. Try to target a SBP of 150. She is having a headache now, which may be due to increased hydralazine. I will decreased dose. Will add in beta andrey. Goal with BP meds would be to max out ACEI and CCB, and add in low dose diuretic. Clonidine has been tapered off, and we will now begin adding in Beta andrey. -Nephrotic Syndrome Seros pending. Will consider biopsy once BP better. -Headache New. No other neurologic findings. She has baseline dementia. Treat headache and hypertension. Further eval if no response. DW primary team. -Effusions Check ALLAN and anti histone AB. Plan: 04/15/18 10:58 Subjective: Headache, which is new Objective: Vital Signs Temp Pulse Resp BP Pulse Ox 36.6 C 87 16 182/87 H 95 04/15/18 08:00 04/15/18 08:00 04/15/18 08:00 04/15/18 09:39 04/15/18 08:00 Laboratory Results 04/15/18 04:59 04/14/18 04/15/18 04/16/18 05:59 05:59 05:59 Intake Total 550 620 Output Total 400 1350 200 Balance 150 -730 -200 PT 12.2 SEC (12.0-15.0) 04/10/18 12:30 INR 0.88 (0.83-1.16) 04/10/18 12:30 Physical Exam - Physical Exam General Appearance: mild distress Respiratory: lungs clear Cardiac/Chest: regular rate, rhythm Extremities: pedal edema (trace) Neuro/Psych: alert ICD10 Worksheet Patient Problems: Problems Problem Status Onset Chest pain Acute Pleural effusion Acute
[2018-04-15] MEDS: ACETAMINOPHEN 325 MG TAB PO PRN ×2 (11:13→18:40)
[2018-04-15] MEDS: ONDANSETRON DISINTEGRATING 4 MG TAB PO PRN (11:13)
[2018-04-15] MEDS ORDERED: POLYETHYLENE GLYCOL 3350 17 GM PKT PO PRN (11:23)
[2018-04-15] MEDS ORDERED: BISACODYL 10 MG SUPP PR PRN (11:23)
[2018-04-15] MEDS ORDERED: MAGNESIUM HYDROXIDE 30 ML UDCUP PO PRN (11:23)
[2018-04-15] MEDS ORDERED: LACTULOSE 20 GM/30 ML UDCUP PO PRN (11:23)
--- NOTE | 2018-04-15 11:23 | HOSPPROG ---
Hospitalist Progress Note Assessment/Plan: 78yo F with nephrotic syndrome, dementia, HTN, prior right pleural effusion presents with acute onset shortness of breath found to have pleural effusion and elevated d-dimer. #Dyspnea: Suspect r/t pleural effusions. Rpt CXR yest showed recurrent effusions R>L, likely due to nephrotic syndrome with hypoalbuminemia. Also considered anginal equivalent: trop neg, ekg non-ischemic. -s/p IV albumin with bumex yest x2 doses #Bilateral pleural effusions: 2/2 nephrotic syndrome + diastolic dysfunction, s/ p thoracentesis, fluid is transudative -cont bumex -ALLAN, histone Ab pending -added cytology to pleural fluid, pending #Hypoxemia: 2 LPM, likely 2/2 above -repeat CXR as above -wean O2 as able #Nephrotic syndrome: Creatinine 1.0-1.1. Spot urine protein:Cr >10. Albumin 1.7. Renal following - cont lisinopril, now 20 mg daily - cont bumex - Has renal follow up 05/09 with [facility] - will likely need a renal biopsy at some time for diagnosis. #HTN: still sub-optimal control, labile - cont lisinopril, developed eckert with increased hydralazine dose yest - discussed with renal, lower hydral, add coreg instead - cont amlodipine, could up-titrate if needed #Diastolic dysfunction: she is not sure if she takes bumex at home, but receiving BID dosing here, does not appear significantly volume overloaded today - cont bumex as above - monitor I&O's, daily weights #Dementia: - At baseline #Hypothyroid: - Home LT4 replacement #Anemia: hgb dropped from 13.8 to 11, no e/o bleeding, may have been hemoconcentrated on arrival - rpt h&h today stable #Headache: could be from increased hydralazine dose, no neurologic deficits - med changes as above - prn tylenol - head CT if worsens or develops neuro deficits #Hyponatremia: mild, ?2/2 diuretic -follow for now VTE ppx: LMWH Code: full Diet: Na restricted Dispo: cont inpt Subjective: Pt c/o headache. No weakness or difficulty speaking. ECKERT is frontal and b/l. No fevers/chills. No CP. Still a bit dyspneic. Objective: Vital Signs Temp Pulse Resp BP Pulse Ox 36.6 C 87 16 182/87 H 95 04/15/18 08:00 04/15/18 08:00 04/15/18 08:00 04/15/18 09:39 04/15/18 08:00 Laboratory Results 04/15/18 04:59 04/14/18 04/15/18 04/16/18 05:59 05:59 05:59 Intake Total 550 620 Output Total 400 1350 200 Balance 150 -730 -200 PT 12.2 SEC (12.0-15.0) 04/10/18 12:30 INR 0.88 (0.83-1.16) 04/10/18 12:30 - Physical Exam Constitutional: no apparent distress Eyes: PERRL Ears, Nose, Mouth, Throat: moist mucous membranes Cardiovascular: regular rate and rhythym Respiratory: other (diminished at bases b/l) Gastrointestinal: normoactive bowel sounds, soft, non-tender abdomen Skin: warm Musculoskeletal: full muscle strength Neurologic: AAOx3 Psychiatric: interacting appropriately ICD10 Worksheet Patient Problems: Problems Problem Status Onset Chest pain Acute Pleural effusion Acute
[2018-04-15 11:29] LABS: PLATELET COUNT 248 10^3/uL (150-400)
--- NOTE | 2018-04-15 11:29 | CPEKG ---
Test Reason : OPEN Blood Pressure : / mmHG Vent. Rate : 089 BPM Atrial Rate : 089 BPM P-R Int : 125 ms QRS Dur : 096 ms QT Int : 402 ms P-R-T Axes : 048 038 056 degrees QTc Int : 490 ms Sinus rhythm Borderline prolonged QT interval Confirmed by Enrike Adame ([id number]) on 04/15/2018 11:29:29 AM Referred By: Behzad Black Confirmed By:Enrike Adame
[2018-04-15] MEDS: ROSUVASTATIN CALCIUM 10 MG TAB PO SCH (18:41)
[2018-04-15] MEDS: CARVEDILOL 3.125 MG TAB PO SCH (18:41)
[2018-04-15] MEDS: SENNOSIDES/DOCUSATE SODIUM TAB PO SCH (21:32)
[2018-04-15] MEDS: MELATONIN 3 MG TAB PO SCH (21:33)
[2018-04-16] MEDS: ACETAMINOPHEN 325 MG TAB PO PRN (03:27)
[2018-04-16] MEDS ORDERED: LABETALOL HCL 100 MG TAB PO ONE (03:34)
[2018-04-16] MEDS: SENNOSIDES/DOCUSATE SODIUM TAB PO SCH ×2 (08:04→21:24)
[2018-04-16] MEDS: ONDANSETRON DISINTEGRATING 4 MG TAB PO PRN (08:04)
[2018-04-16] MEDS: POTASSIUM CL 20 MEQ TAB PO SCH (08:05)
[2018-04-16] MEDS: amLODIPine BESYLATE 5 MG TAB PO SCH (08:05)
[2018-04-16] MEDS: BUMETANIDE 1 MG TAB PO SCH ×2 (08:05→15:13)
[2018-04-16] MEDS: CARVEDILOL 3.125 MG TAB PO SCH ×2 (08:05→17:10)
[2018-04-16] MEDS: LISINOPRIL 10 MG TAB PO SCH ×2 (08:05→21:23)
[2018-04-16] MEDS: hydrALAZINE 25 MG TAB PO SCH ×3 (08:06→21:24)
[2018-04-16] MEDS: ENOXAPARIN 40 MG/0.4 ML SYR SC SCH (08:06)
[2018-04-16] MEDS: LEVOTHYROXINE 75 MCG TAB PO SCH (08:06)
[2018-04-16] MEDS: PARoxetine HCL 10 MG TAB PO SCH (08:06)
[2018-04-16] MEDS ORDERED: amLODIPine BESYLATE 5 MG TAB PO ONE (13:13)
--- NOTE | 2018-04-16 13:47 | HOSPPROG ---
Hospitalist Progress Note Assessment/Plan: 78yo F with nephrotic syndrome, dementia, HTN, prior right pleural effusion presents with acute onset shortness of breath found to have pleural effusion and elevated d-dimer. #Dyspnea: Suspect r/t pleural effusions, improved today. Rpt CXR showed recurrent effusions R>L, likely due to nephrotic syndrome with hypoalbuminemia. Also considered anginal equivalent: trop neg, ekg non-ischemic. -s/p IV albumin with bumex x2 doses #Bilateral pleural effusions: 2/2 nephrotic syndrome + diastolic dysfunction, s/ p thoracentesis, fluid is transudative -cont bumex -ALLAN, histone Ab pending -added cytology to pleural fluid, pending #Hypoxemia: 2 LPM, likely 2/2 above -wean O2 as able #Nephrotic syndrome: Creatinine 1.1-->0.9. Spot urine protein:Cr >10. Albumin 1.7-->2 after IV Albumin. Renal following - cont lisinopril, now 20 mg daily - cont bumex - Has renal follow up 05/09 with [facility] - will likely need a renal biopsy as outpt for diagnosis #HTN: still sub-optimal control, labile - cont lisinopril, developed villarreal with increased hydralazine dose yest - discussed with renal, lower hydral, add coreg instead - will up-titrate amlodipine today to 10 mg daily #Diastolic dysfunction: she is not sure if she takes bumex at home, but receiving BID dosing here, does not appear significantly volume overloaded today - cont bumex as above - monitor I&O's, daily weights #Dementia: - At baseline #Hypothyroid: - Home LT4 replacement #Anemia: hgb dropped from 13.8 to 11, no e/o bleeding, may have been hemoconcentrated on arrival - rpt h&h stable #Hyponatremia: mild, ?2/2 diuretic -follow for now #Elevated FLC: Discussed with renal, could be related to renal insufficiency. Awaiting SPEP to see if there is M spike. VTE ppx: LMWH Code: full Diet: Na restricted Dispo: cont inpt Subjective: Pt feels a bit better today. Less dyspneic. No CP or SOB at rest. Family is here today, her spirits are improved. Objective: Vital Signs Temp Pulse Resp BP Pulse Ox 36.9 C 98 16 182/90 H 91 L 04/16/18 11:36 04/16/18 11:36 04/16/18 11:36 04/16/18 13:29 04/16/18 11:36 Laboratory Results 04/15/18 04:59 04/16/18 04:52 04/15/18 04/16/18 04/17/18 05:59 05:59 05:59 Intake Total 620 100 Output Total 1350 750 200 Balance -730 -650 -200 PT 12.2 SEC (12.0-15.0) 04/10/18 12:30 INR 0.88 (0.83-1.16) 04/10/18 12:30 - Physical Exam Constitutional: no apparent distress Eyes: PERRL Ears, Nose, Mouth, Throat: moist mucous membranes Cardiovascular: regular rate and rhythym Respiratory: no respiratory distress, reduced air movement, other (diminished at bases b/l) Gastrointestinal: normoactive bowel sounds, soft, non-tender abdomen Skin: warm Musculoskeletal: full muscle strength Neurologic: AAOx3 Psychiatric: interacting appropriately ICD10 Worksheet Patient Problems: Problems Problem Status Onset Chest pain Acute Pleural effusion Acute
--- NOTE | 2018-04-16 16:26 | SOAPPROG ---
SOAP Progress Note Assessment/Plan: Assessment: 1. nephrotic syndrome: will likely need bx at some point but this could be done as outpt. Will need much better bp control prior to proceeding with this. Serologies neg thus far. Remains volume up with relatively modest diuresis, will increase bumex a bit. Creat near-normal, which decreases urgency of bx. 2. htn: control remains quite poor. Will double lisinopril to 20 bid, increase bumex to 2/1 bid. Plan: 04/16/18 16:23 Subjective: No particular c/o aside from needing to void. Objective: Vital Signs Temp Pulse Resp BP Pulse Ox 36.6 C 88 18 181/99 H 94 04/16/18 15:09 04/16/18 15:09 04/16/18 15:09 04/16/18 16:07 04/16/18 15:09 Laboratory Results 04/15/18 04:59 04/16/18 04:52 04/15/18 04/16/18 04/17/18 05:59 05:59 05:59 Intake Total 620 100 Output Total 1350 750 200 Balance -730 -650 -200 PT 12.2 SEC (12.0-15.0) 04/10/18 12:30 INR 0.88 (0.83-1.16) 04/10/18 12:30 Physical Exam - Physical Exam General Appearance: no apparent distress, thin Neck: other (+HJR) Respiratory: lungs clear, other (dec bs at R base) Cardiac/Chest: regular rate, rhythm Abdomen: non-tender, soft, other (+HJR) Extremities: other (+just trace LE edema) ICD10 Worksheet Patient Problems: Problems Problem Status Onset Chest pain Acute Pleural effusion Acute
[2018-04-16] MEDS: ROSUVASTATIN CALCIUM 10 MG TAB PO SCH (17:09)
[2018-04-16] MEDS: MELATONIN 3 MG TAB PO SCH (21:24)
--- NOTE | 2018-04-17 08:29 | HOSPPROG ---
Hospitalist Progress Note Assessment/Plan: 78yo F with nephrotic syndrome, dementia, HTN, prior right pleural effusion presents with acute onset shortness of breath found to have pleural effusion and elevated d-dimer. First encounter, chart reviewd. #Dyspnea -patient not c/o of shortness of breath during my interviewe -likely r/t pleural effusions -recent CXR showed recurrent effusions R>L, likely due to nephrotic syndrome with hypoalbuminemia -s/p albumin and bumex #Bilateral pleural effusions: 2/2 nephrotic syndrome + diastolic dysfunction, s/ p thoracentesis, fluid is transudative -cont bumex -ALLAN, histone Ab pending -added cytology to pleural fluid, pending #Hypoxemia: 2 LPM, likely 2/2 above -wean O2 as able #Nephrotic syndrome -renal seeing -serologies negative so fare -OP biopsy -f/u apt w [facility] on 05/09 #HTN -lisinopril increased 20 mg bid, Norvasc at 10 mg daily, hydralazine, and Coreg -uncontrolled his morning #Diastolic dysfunction - cont bumex as above - monitor I&O's, daily weights (54 kg today, almost down 2 kg since admission) #Dementia -she has no recollection why she is here, and was not clear where she lives #Hypothyroid: - Home LT4 replacement #Anemia: hgb dropped from 13.8 to 11, no e/o bleeding, may have been hemoconcentrated on arrival -h & h stable #Hyponatremia: mild -na 133 #Elevated FLC (free light chains) -will get her f/u with oncology #plan: if bp can be better managed; will dc in a.m. and have her get OP biopsy and f/u w oncology Subjective: Melonie has no c/o dyspnea, feels fine, not sure why she is here. Objective: Vital Signs Temp Pulse Resp BP Pulse Ox 36.6 C 100 18 189/104 H 90 L 04/17/18 03:25 04/17/18 03:25 04/17/18 03:25 04/17/18 03:25 04/17/18 03:25 Laboratory Results 04/15/18 04:59 04/17/18 04:52 04/16/18 04/17/18 04/18/18 05:59 05:59 05:59 Intake Total 100 200 240 Output Total 750 500 100 Balance -650 -300 140 PT 12.2 SEC (12.0-15.0) 04/10/18 12:30 INR 0.88 (0.83-1.16) 04/10/18 12:30 - Physical Exam Constitutional: no apparent distress, chronically ill appearing Eyes: PERRL Ears, Nose, Mouth, Throat: hearing normal Cardiovascular: regular rate and rhythym Respiratory: no respiratory distress, reduced air movement (bibasilar) Skin: warm Musculoskeletal: generalized weakness Neurologic: other (alert and oriented to herself) Psychiatric: flat affect, poor insight, poor memory ICD10 Worksheet Patient Problems: Problems Problem Status Onset Chest pain Acute Pleural effusion Acute
[2018-04-17] MEDS: LEVOTHYROXINE 75 MCG TAB PO SCH (09:53)
[2018-04-17] MEDS: BUMETANIDE 1 MG TAB PO SCH ×2 (09:54→15:26)
[2018-04-17] MEDS: CARVEDILOL 3.125 MG TAB PO SCH ×2 (09:54→17:16)
[2018-04-17] MEDS: PARoxetine HCL 10 MG TAB PO SCH (09:54)
[2018-04-17] MEDS: LISINOPRIL 10 MG TAB PO SCH ×2 (09:54→21:10)
[2018-04-17] MEDS: amLODIPine BESYLATE 5 MG TAB PO SCH (09:54)
[2018-04-17] MEDS: SENNOSIDES/DOCUSATE SODIUM TAB PO SCH ×2 (09:55→21:10)
[2018-04-17] MEDS: POTASSIUM CL 20 MEQ TAB PO SCH (09:55)
[2018-04-17] MEDS: ENOXAPARIN 40 MG/0.4 ML SYR SC SCH (09:55)
[2018-04-17] MEDS: hydrALAZINE 25 MG TAB PO SCH ×3 (09:55→21:11)
--- NOTE | 2018-04-17 09:55 | ASMTCMCOM ---
CM Note CM Note Notes: Pts case discussed w/ Sara Mccoy NP. Pt is not medically stable to d/c at this time. Updates sent to [facility]. [facility] is still working on getting auth for pt. CM to follow. Plan: [facility] Date Signed: 04/17/2018 09:54 AM Electronically Signed By:HOLLY Gomez
[2018-04-17] MEDS: ONDANSETRON DISINTEGRATING 4 MG TAB PO PRN ×3 (11:33→22:30)
--- NOTE | 2018-04-17 13:46 | SOAPPROG ---
SOAP Progress Note Assessment/Plan: Assessment/Plan: 78 y/o F with a known h/o nephrotic syndrome presented with pleural effusions and nephrotic range proteinuria and HTN. Not making great UO on oral diuretics however breathing status improved and Cr stable. HTN/vol -bumex 2.5mg BID -low sodium diet -may increase lisinopril or consider scheduling hydralazine prn -goal SBP<150mmHg systolic Nephrotic syndrome -no edema -will consider biopsy as outpatient however given significant dementia will discuss goals of care first with daughter Katie -stable for discharge from a renal standpoint Pleural effusions -s/p thoracentesis with albumin -monitor per pulm/primary Please contact if ?'s. #[phone] 04/17/18 15:02 Subjective: Patient unsure if she has had renal biopsy. States her breathing has improved and she moved here to be closer to her daughter. She is unsure of incontinence or if she is collecting all urine in the hat. Objective: Vital Signs Temp Pulse Resp BP Pulse Ox 36.5 C 93 16 160/105 H 90 L 04/17/18 11:21 04/17/18 11:21 04/17/18 11:21 04/17/18 11:21 04/17/18 11:21 Laboratory Results 04/15/18 04:59 04/17/18 04:52 04/16/18 04/17/18 04/18/18 05:59 05:59 05:59 Intake Total 100 200 590 Output Total 750 500 600 Balance -650 -300 -10 PT 12.2 SEC (12.0-15.0) 04/10/18 12:30 INR 0.88 (0.83-1.16) 04/10/18 12:30 Physical Exam - Physical Exam General Appearance: alert, no apparent distress, thin EENT: PERRL/EOMI Neck: non-tender, full range of motion, supple Respiratory: decreased breath sounds Cardiac/Chest: regular rate, rhythm Abdomen: normal bowel sounds, non-tender, soft Skin: pallor Extremities: normal range of motion, non-tender Neuro/Psych: disoriented to place, disoriented to time ICD10 Worksheet Patient Problems: Problems Problem Status Onset Chest pain Acute Pleural effusion Acute
[2018-04-17] MEDS: ROSUVASTATIN CALCIUM 10 MG TAB PO SCH (17:19)
[2018-04-17] MEDS ORDERED: hydrALAZINE 25 MG TAB PO ONE (18:06)
[2018-04-17] MEDS: MELATONIN 3 MG TAB PO SCH (21:11)
[2018-04-18] MEDS: ONDANSETRON DISINTEGRATING 4 MG TAB PO PRN ×4 (03:08→20:04)
[2018-04-18] MEDS: CARVEDILOL 3.125 MG TAB PO SCH ×2 (09:22→17:53)
[2018-04-18] MEDS: hydrALAZINE 25 MG TAB PO SCH ×3 (09:22→20:06)
[2018-04-18] MEDS: amLODIPine BESYLATE 5 MG TAB PO SCH (09:23)
[2018-04-18] MEDS: LEVOTHYROXINE 75 MCG TAB PO SCH (09:23)
[2018-04-18] MEDS: POTASSIUM CL 20 MEQ TAB PO SCH (09:23)
[2018-04-18] MEDS: LISINOPRIL 10 MG TAB PO SCH ×2 (09:23→20:06)
[2018-04-18] MEDS: PARoxetine HCL 10 MG TAB PO SCH (09:23)
[2018-04-18] MEDS: BUMETANIDE 1 MG TAB PO SCH ×2 (09:24→16:10)
[2018-04-18] MEDS: ENOXAPARIN 40 MG/0.4 ML SYR SC SCH (09:24)
[2018-04-18] MEDS: SENNOSIDES/DOCUSATE SODIUM TAB PO SCH ×2 (09:31→20:08)
--- NOTE | 2018-04-18 10:09 | HOSPPROG ---
Hospitalist Progress Note Assessment/Plan: 78yo F with nephrotic syndrome, dementia, HTN, prior right pleural effusion presents with acute onset shortness of breath found to have pleural effusion and elevated d-dimer. #Dyspnea -patient not c/o of shortness of breath during my interview -likely r/t pleural effusions -recent CXR showed recurrent effusions R>L, likely due to nephrotic syndrome with hypoalbuminemia -s/p albumin and bumex #Bilateral pleural effusions: 2/2 nephrotic syndrome + diastolic dysfunction, s/ p thoracentesis, fluid is transudative -cont bumex -ALLAN, histone Ab pending -pleural fluid doesn't note any malignancy #Hypoxemia: 2 LPM, likely 2/2 above -wean O2 as able #Nephrotic syndrome -renal seeing -serologies negative so fare -OP biopsy -f/u apt w [facility] on 05/09 #HTN -lisinopril increased 20 mg bid, Norvasc at 10 mg daily, hydralazine, and Coreg -uncontrolled his morning #Diastolic dysfunction - cont bumex as above - monitor I&O's, daily weights (54 kg today, almost down 2 kg since admission) #Dementia -she has no recollection why she is here, and was not clear where she lives #Hypothyroid: - Home LT4 replacement #Anemia: hgb dropped from 13.8 to 11, no e/o bleeding, may have been hemoconcentrated on arrival -h & h stable #Hyponatremia: mild -na 133 #Elevated FLC (free light chains) -Dr Jack to see later today #plan: if bp can be better managed; will dc soon and have her get OP biopsy. Oncology to see to evaluate labs, etc. message left for her daughter, Katie to update her ([phone]) Subjective: Melonie says the large amount of food is overwhelming. Objective: Vital Signs Temp Pulse Resp BP Pulse Ox 36.4 C 102 H 16 173/101 H 92 04/18/18 08:00 04/18/18 09:22 04/18/18 08:00 04/18/18 09:23 04/18/18 08:00 Laboratory Results 04/15/18 04:59 04/17/18 04:52 04/17/18 04/18/18 04/19/18 05:59 05:59 05:59 Intake Total 200 590 Output Total 500 4715 Balance -300 -885 PT 12.2 SEC (12.0-15.0) 04/10/18 12:30 INR 0.88 (0.83-1.16) 04/10/18 12:30 - Physical Exam Constitutional: not in pain, chronically ill appearing Eyes: PERRL Ears, Nose, Mouth, Throat: hearing normal Cardiovascular: regular rate and rhythym Respiratory: no respiratory distress Skin: warm Musculoskeletal: generalized weakness Neurologic: other (alert and more conversant today) Psychiatric: interacting appropriately, poor insight, poor judgement, poor memory ICD10 Worksheet Patient Problems: Problems Problem Status Onset Chest pain Acute Pleural effusion Acute
--- NOTE | 2018-04-18 11:13 | SOAPPROG ---
SOAP Progress Note Assessment/Plan: Assessment: nephrotic range proteinuria serologic evaluation negative so far HTN needs better control dementia, not sure she is able to make decisions Plan: increase coreg continue other therapies considering biopsy, not sure she would be able to participate in biopsy due to her dementia 04/18/18 11:10 Subjective: feels dizzy denies pain nausea or vomiting not eating much slept OK energy not great Objective: Vital Signs Temp Pulse Resp BP Pulse Ox 36.4 C 102 H 16 173/101 H 92 04/18/18 08:00 04/18/18 09:22 04/18/18 08:00 04/18/18 09:23 04/18/18 08:00 Laboratory Results 04/15/18 04:59 04/17/18 04:52 04/17/18 04/18/18 04/19/18 05:59 05:59 05:59 Intake Total 200 590 Output Total 500 1475 Balance -300 -885 PT 12.2 SEC (12.0-15.0) 04/10/18 12:30 INR 0.88 (0.83-1.16) 04/10/18 12:30 Physical Exam - Physical Exam General Appearance: other (cachectic) Neck: normal inspection Respiratory: No rhonchi, No wheezing, No pleural rub Cardiac/Chest: No edema Abdomen: normal bowel sounds, non-tender, soft Skin: warm/dry Extremities: No swelling Neuro/Psych: alert, normal mood/affect, oriented x 3 ICD10 Worksheet Patient Problems: Problems Problem Status Onset Chest pain Acute Pleural effusion Acute
--- NOTE | 2018-04-18 17:02 | ASMTCMCOM ---
CM Note CM Note Notes: Pts case discussed w/ Sara Mccoy NP. CM spoke to pts daughter Katie. Katie would like pt to d/c to [facility] instead of [facility]. CM notified [facility] of the change. [facility] is in the process of getting auth. CM to follow. Plan: [facility] Date Signed: 04/18/2018 05:01 PM Electronically Signed By:HOLLY Gomez
[2018-04-18] MEDS: ROSUVASTATIN CALCIUM 10 MG TAB PO SCH (17:53)
[2018-04-18] MEDS: MELATONIN 3 MG TAB PO SCH (20:06)
--- NOTE | 2018-04-19 03:09 | GCON ---
[f rep st] CONSULTATION NEW PATIENT CONSULTATION REASON FOR CONSULTATION: Patient with nephrotic syndrome, wanting to rule out monoclonal gammopathy. HISTORY OF PRESENT ILLNESS: The patient is a 78-year-old woman with dementia. She is accompanied by several family members today. Apparently, she has a history of nephrotic syndrome and hypertension, who presented with shortness of breath on 04/10/2018. The patient is not a reliable historian. Jair mike reports that she intermittently complains of shortness of breath since moving from [facility] in January. She previously had a speech pathology assistant there. Prior therapies for nephrotic synd natasha were not exactly helpful. The morning of admission, she had acute change and trouble catching h er breath. She had worsening swelling in both legs for several weeks. She denied chest pain, pleuri tic pain, orthopnea. No fevers or chills. Again, she had not yet established with speech pathology assistant in [facility]. The patient has been seen by Nephrology, noted to have nephrotic range proteinuria. Serologic evalua tion negative so far. Working on better hypertensive control. Considering kidney biopsy to further classify nephrotic syndrome. As far as dyspnea, recent chest x-ray showed recurrent effusions, right greater than left, likely due to nephrotic syndrome and hypoalbuminemia. The patient's only complaint today is dizziness and secondary nausea. On laboratory analysis, she was noted to have an elevated free kappa light chain, but her ratio was n ormal. I was asked to weigh in on this abnormality. REVIEW OF SYSTEMS: 14-point review of systems negative other than HPI. PAST MEDICAL HISTORY: High blood pressure, depression, hyperlipidemia. PAST SURGICAL HISTORY: None pertinent. FAMILY HISTORY: Mother and father both with CAD status post CABG. No history of kidney disease. SOCIAL HISTORY: Former smoker. Lives independently at [place]. Daughter is MD BLAS. MEDICATIONS: Reviewed in EMR. PHYSICAL EXAM: VITAL SIGNS: Blood pressure 152/82, heart rate 96, respiratory rate 16, saturating 9 0% on room air, temperature is 36.6. GENERAL: She is an elderly woman, not in acute distress, mildl y confused. HEENT: Anicteric. No periorbital edema. No oropharynx lesions. HEART: Regular rate and rhythm. LUNGS: Clear to auscultation with the exception of decreased breath sounds at bases. ABDOMEN: Soft, nontender. No enlarged liver or spleen. EXTREMITIES: Lower extremities show no edema. LABORATORY DATA: SPEP negative with no monoclonal protein. She also had a random UPEP that showed n o apparent M spike. This was not a 24 hour urine. She had serum free light chains, kappa light kylah n was slightly elevated at 4.25, lambda light chain normal at 2.58. Overall ratio was normal at 1.65 . Hepatitis serologies negative. No evidence of hypercalcemia or acute change in creatinine. IMAGING: Most recent imaging done at this hospitalization include chest x-ray x2, chest CTA and extr emity venous study. No evidence of DVT. No lytic lesions noted. ASSESSMENT AND PLAN: 78-year-old woman with underlying dementia as well as previous diagnosed hypert ension and nephrotic syndrome. Etiology of nephrotic syndrome somewhat elusive, potentially consider ing a kidney biopsy. The patient was admitted for worsening shortness of breath, noted to have bilat eral pleural effusions. Ongoing complaints now include dizziness and nausea. I was asked to see her to weigh in on the possibility that the patient has an underlying monoclonal gammopathy contributing to nephrotic syndrome. Given the fact that her calcium is normal, creatinine is relatively normal, no lytic lesions and anem ia can be otherwise explained, unlikely that she has multiple myeloma or any other underlying lymphom a. Although her kappa light chain was slightly elevated overall ratio is normal and this is the most important aspect of evaluation. In addition, her random UPEP as well as SPEP showed no monoclonal p rotein. Therefore, I think monitoring is reasonable. I do not think this patient needs a bone marro w biopsy and do not think it is contributing to her nephrotic syndrome. Typically, we would see a mo noclonal protein on UPEP. At this point, given the longevity of her nephrotic syndrome, patient poli d have end-stage kidney disease without the treatment of underlying plasma cell dyscrasia or other. I discussed this with the daughter. No intervention required at this time. I think it is reasonable to move on with a kidney biopsy, but overall I am not sure how this is going to change her prognosis or treatment. About 30 minutes spent with patient, more than 50% of time counseling and coordinating care. Please consult again if new questions arise. /[id number]/MODL
[2018-04-19] MEDS: amLODIPine BESYLATE 5 MG TAB PO SCH (09:23)
[2018-04-19] MEDS: BUMETANIDE 1 MG TAB PO SCH ×3 (09:23→14:59)
[2018-04-19] MEDS: CARVEDILOL 3.125 MG TAB PO SCH (09:24)
[2018-04-19] MEDS: ENOXAPARIN 40 MG/0.4 ML SYR SC SCH (09:25)
[2018-04-19] MEDS: POTASSIUM CL 20 MEQ TAB PO SCH (10:27)
[2018-04-19] MEDS: SENNOSIDES/DOCUSATE SODIUM TAB PO SCH (10:28)
--- NOTE | 2018-04-19 11:10 | SOAPPROG ---
[facility] Progress Note Assessment/Plan: Assessment: Meeting patient for first time. She is not a good historian. I have reviewed data -Severe HTN This is chronic. She is presently in the 150's, which I feel is a good place for her now. Will continue her present medications. -Proteinuria This may have been present since the 2015. Her renal function is preserved. I will plan on reviewing her old records. If this is chronic, I would like to follow conservatively. If there is worsening , we can further entertain a biopsy, but only if there is clear understanding of potential treatment regimens, and we would consider such treatments -Dementia Her cognitive function appears good today, but it varies I had a long discussion with Katie, her daughter, today. We will have futher discussions and entertain biopsy at a later date. 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 Subjective: Doing ok today Objective: Vital Signs Temp Pulse Resp BP Pulse Ox 36.6 C 90 14 151/98 H 88 L 04/19/18 07:38 04/19/18 09:24 04/19/18 07:38 04/19/18 09:24 04/19/18 07:38 Laboratory Results 04/15/18 04:59 04/17/18 04:52 04/18/18 04/19/18 04/20/18 05:59 05:59 05:59 Intake Total 590 Output Total 1475 200 200 Balance -885 -200 -200 PT 12.2 SEC (12.0-15.0) 04/10/18 12:30 INR 0.88 (0.83-1.16) 04/10/18 12:30 Physical Exam - Physical Exam General Appearance: no apparent distress Respiratory: lungs clear Cardiac/Chest: regular rate, rhythm Extremities: normal inspection ICD10 Worksheet Patient Problems: Problems Problem Status Onset Chest pain Acute Pleural effusion Acute
[2018-04-19] MEDS: hydrALAZINE 25 MG TAB PO SCH ×2 (11:37→14:57)
[2018-04-19] MEDS: LEVOTHYROXINE 75 MCG TAB PO SCH (11:37)
[2018-04-19] MEDS: LISINOPRIL 10 MG TAB PO SCH (11:38)
[2018-04-19] MEDS: PARoxetine HCL 10 MG TAB PO SCH (12:23)
--- NOTE | 2018-04-19 12:53 | HOSPPROG ---
Hospitalist Progress Note Assessment/Plan: 78yo F with nephrotic syndrome, dementia, HTN, prior right pleural effusion presents with acute onset shortness of breath found to have pleural effusion and elevated d-dimer. Met w the patient w Dr Paulino. #Dyspnea -patient not c/o of shortness of breath during my interview -likely r/t pleural effusions -recent CXR showed recurrent effusions R>L, likely due to nephrotic syndrome with hypoalbuminemia -s/p albumin and bumex #Bilateral pleural effusions: 2/2 nephrotic syndrome + diastolic dysfunction, s/ p thoracentesis, fluid is transudative -cont bumex -ALLAN, histone Ab pending -pleural fluid doesn't note any malignancy #Hypoxemia -resolved, on room air #Nephrotic syndrome -renal seeing -serologies negative so fare -OP biopsy -f/u apt w [facility] on 05/09 #HTN -lisinopril increased 20 mg bid, Norvasc at 10 mg daily, hydralazine, and Coreg increased -better today #Diastolic dysfunction - cont bumex as above #Dementia -she has no recollection why she is here, and was not clear where she lives yesterday -she is much clearer today #Hypothyroid: - Home LT4 replacement #Anemia: hgb dropped from 13.8 to 11, no e/o bleeding, may have been hemoconcentrated on arrival -h & h stable #Hyponatremia: mild -na 133 #Elevated FLC (free light chains) -appreciate Dr Jack seeing her #plan: dc today Subjective: paige feels fine, has no complaints. Objective: Vital Signs Temp Pulse Resp BP Pulse Ox 36.6 C 90 14 151/98 H 88 L 04/19/18 07:38 04/19/18 09:24 04/19/18 07:38 04/19/18 11:38 04/19/18 07:38 Laboratory Results 04/15/18 04:59 04/17/18 04:52 04/18/18 04/19/18 04/20/18 05:59 05:59 05:59 Intake Total 590 Output Total 1475 200 200 Balance -885 -200 -200 PT 12.2 SEC (12.0-15.0) 04/10/18 12:30 INR 0.88 (0.83-1.16) 04/10/18 12:30 - Physical Exam Constitutional: chronically ill appearing, other (thin) Eyes: PERRL Ears, Nose, Mouth, Throat: hearing normal Cardiovascular: regular rate and rhythym Respiratory: no respiratory distress Gastrointestinal: normoactive bowel sounds Skin: warm Musculoskeletal: generalized weakness Neurologic: AAOx3 Psychiatric: interacting appropriately, not anxious, not encephalopathic, poor memory ICD10 Worksheet Patient Problems: Problems Problem Status Onset Chest pain Acute Pleural effusion Acute
--- NOTE | 2018-04-19 13:04 | PDIAF ---
- Diagnosis Diagnosis: nephrotic syndrome, uncontrolled htn, dementia, pleural effusion Code Status: Full Code - Medication Management Discharge Medications: electronically signed and located in the Home Medication List. - Orders Services needed: Physical Therapy, Occupational Therapy, Speech Language Pathologist Diet Recommendation: sodium restricted (2 gm) Diet Texture: Regular Texture Diet Additional Instructions: activity as tolerated f/u with nephrology to discuss outpatient biopsy- [facility] Labs[facility]Radiology BMP Date: 04/25/18 (weekly) - Follow Up Care Current Providers and Referrals: Kina Jones MD [Primary Care Provider] - Naveen Paulino MD [Medical Doctor] -
--- NOTE | 2018-04-19 13:49 | ASMTDCNOTE ---
Case Management Discharge Discharge Order Complete? Answers: Yes Patient to Obtain Answers: Other Notes: [facility] Medications Transportation Arranged Answers: Other Notes: [facility] w/c transportation Transport will Pick (Date 04/19/2018 03:00 PM & Time) EMTALA Complete Answers: No Case Management Transport Answers: No Form Complete Faxed Final Orders Answers: Yes Agency/Facility Transfer Answers: Yes Report Printed & Faxed to Receiving Agency Family Notified Answers: Yes Discharge Comments Notes: Pts case discussed w/ Sara Mccoy NP. Pt is being d/c'd today to [facility]. [facility] was able to obtain auth today. CM spoke to pts daughter Katie and she is on board w/ d/c plan. DC orders sent. DOROTHY Billingsley will call to give report. CM available for changes. Plan: [facility] Date Signed: 04/19/2018 01:49 PM Electronically Signed By:HOLLY Gomez
[2018-04-19 13:56] VITALS: BP 191/95
--- NOTE | 2018-04-19 13:56 | ASDISCHSUM ---
Discharge Information Plan Status:SNF Medically Cleared to Leave:04/18/2018 Discharge Date:04/18/2018 CM D/C Disposition: ADT D/C Disposition:Usp Facility Projected Discharge Date:04/19/2018 11:00 AM Transportation at D/C: Discharge Delay Reason: Follow-Up Date:04/19/2018 11:00 AM Discharge Slot: Final Diagnosis: Placement Information Referral Type:*Custodial/SNF Referral ID:[id number] Provider Name:[facility] Address 1:[address] Address 2: City:[place] Selection Factors: State:[place] Patient Contact Information Contact Name:ADRIANA Relationship:Daughter Address:[address] Work Phone: City:[facility] Phone: State/Zip Code:[place] [address] Email: Financial Information Financial Class:Medicare Advantage Plans Primary Plan Desc:[facility] ADVANTAGE [employer] Primary Plan Number:[id number] Secondary Plan Desc: Secondary Plan Number: Assessment Information LACE LACE Length of stay for Answers: 7-13 days current admission Acuity / Level of Answers: Yes Care: Did the patient have an inpatient admission? Comorbidities - select Answers: Dementia all that apply Other Notes: Hypothyroid; HTN; Dysli pid emia # of Emergency department Answers: 1-2 visits in the last 6 months Social determinants Answers: Mental health diagnosis (anxiety, depression, pers onality disorders, etc.) Score: 16 Date Signed: 04/19/2018 01:54 PM Electronically Signed By:HOLLY Gomez [facility] CM Progress Note CM Note CM Note Notes: Pt admitted to hospital for pleural effusion. She is from [place] but has recently moved to [place]. She lives at [facility] and has dementia. She has a caregiver come once a week to walk her and help with laundry. Per PT/OT may need homecare, CM to discuss with daughter Katie. DC Plan: Homecare Date Signed: 04/11/2018 04:39 PM Electronically Signed By:Jeannie Fernandez RN [facility] CM Progress Note CM Note CM Note Notes: Pt had a nephrology consult, BP uncontrolled. She lives at [facility] and has dementia at baseline, dtr Katie very involved. Initially spoke with Katie about home care at [place] but at this time PT/OT recommending SNF. CM left message for dtr. DC Plan: TBD Date Signed: 04/14/2018 09:54 AM Electronically Signed By:Jeannie Fernandez RN [facility] CM Progress Note CM Note CM Note Notes: Received call back from dtr and she would like referral sent to [facility]. DC Plan: SNF Date Signed: 04/14/2018 12:33 PM Electronically Signed By:Jeannie Fernandez RN [facility] CM Progress Note CM Note CM Note Notes: Pts case discussed w/ Sara Mccoy NP. Pt is not medically stable to d/c at this time. Updates sent to [facility]. [facility] is still working on getting auth for pt. CM to follow. Plan: [facility] Date Signed: 04/17/2018 09:54 AM Electronically Signed By:HOLLY Gomez [facility] Progress Note CM Note CM Note Notes: Pts case discussed w/ Sara Mccoy NP. CM spoke to pts daughter Katie. Katie would like pt to d/c to [facility] instead of [facility]. CM notified [facility] of the change. [facility] is in the process of getting auth. CM to follow. Plan: [facility] Date Signed: 04/18/2018 05:01 PM Electronically Signed By:HOLLY Gomez Case Management Discharge Plan Note Case Management Discharge Discharge Order Complete? Answers: Yes Patient to Obtain Answers: Other Notes: Lisbeth [facility] Medications Transportation Arranged Answers: Other Notes: Mukesh w/c transportation Transport will Pick (Date 04/19/2018 03:00 PM & Time) LINDY Complete Answers: No Case Management Transport Answers: No Form Complete Faxed Final Orders Answers: Yes Agency/Facility Transfer Answers: Yes Report Printed & Faxed to Receiving Agency Family Notified Answers: Yes Discharge Comments Notes: Pts case discussed w/ Sara Mccoy NP. Pt is being d/c'd today to [facility]. [facility] was able to obtain auth today. CM spoke to pts daughter Katie and she is on board w/ d/c plan. DC orders sent. DOROTHY Billingsley will call to give report. CM available for changes. Plan: [facility] SNF Date Signed: 04/19/2018 01:49 PM Electronically Signed By:HOLLY Gomez Intervention Information Intervention Type:*Incorrect Registration Date of Service:04/10/2018 04:59 PM Patient Type:Inpatient Staff Member:Ashlie Sanchez Hours: Discipline: Severity: Comment:
--- NOTE | 2018-04-19 18:07 | GDS ---
[f rep st] DISCHARGE SUMMARY DISCHARGE DIAGNOSES: 1. Dyspnea. 2. Bilateral pleural effusions secondary to nephrotic syndrome and diastolic dysfunction. 3. Hypoxemia. 4. Nephrotic syndrome. 5. Uncontrolled hypertension. 6. Diastolic dysfunction. 7. Dementia. 8. Hypothyroidism. 9. Anemia. 10. Mild hyponatremia. 11. Elevated free light chains. CONSULTATION: 1. Nidia Monge MD. 2. Dr. Balbina Jack. Briefly, the patient is a 78-year-old woman with known nephrotic syndrome, dementia, hypertension and prior right pleural effusions, presented with acute onset of shortness of breath. She has had ongoing shortness of breath since moving from the [facility] to [place] in January. She had an acute change in trouble catching her breath. Chest x-ray was performed, which showed a right-sided moderate pleural effusion. She had a thoracentesis performed, in which 850 mL of fluid was removed. She was treated also with diuretic therapy for this. She had a CTA performed because of an elevated D-dimer. This showed no acute PE. She had noted moderate right and small left pleural effusions. One of her main issues during her stay was uncontrolled blood pressure. She was seen and evaluated by Nephrology. She has improved throughout her stay. HOSPITAL COURSE: 1. Dyspnea. This was related to her bilateral pleural effusions. She was treated with a thoracentesis, as well as diuretics. She is markedly better. 2. Bilateral pleural effusions. This is secondary to nephrotic syndrome and diastolic dysfunction. Her pleural fluid does not note any malignancy. Continue Bumex on discharge. 3. Hypoxemia, resolved. 4. Nephrotic syndrome. Her serologies are negative. She has a followup appointment with [facility] on May 09. Nephrology is talking with the family about biopsy. 5. Hypertension. Multiple changes to her medications have been done including adding lisinopril, Coreg and higher-dose hydralazine and higher-dose Norvasc. It is improved as of today. 6. Diastolic dysfunction, on Bumex. 7. Dementia. She is much clearer today. 8. Hypothyroidism, on Synthroid. 9. Anemia, stable. 10. Hyponatremia, mild. 11. Elevated free light chains. Dr. Balbina Jack sees her. No concern at this time for cancer. DISCHARGE CONDITION: Stable. Blood pressure is 151/98, heart rate of 90, respiratory rate of 14, O2 sats on room air 90%, temperature 36.6 Celsius. MEDICATIONS AT DISCHARGE: Please see the EMR. DISCHARGE INSTRUCTIONS: 1. To follow up with Nephrology to discuss outpatient biopsy. 2. Activity as tolerated. Greater than 30 minutes discharging and coordinating her care. Copy requested to: Dr. Paulino /[id number]/MODL MTDD
== END 2018-04-19 15:01 | DRG 699 ==
LOC: INTOOBSV 11:39 → F3E 13:28 → OBSVTOIN 04-11 17:21
PROVIDERS: ADMIT Internal Medicine; ATTEND Family Medicine
PROC: 0W993ZZ Drainage of Right Pleural Cavity, Percutaneous Approach (ICD-10-PCS; principal; 2018-04-11)
DX: N04.9 Nephrotic syndrome with unspecified morphologic changes (principal); J91.8 Pleural effusion in other conditions classified elsewhere; E87.1 Hypo-osmolality and hyponatremia; I51.89 Other ill-defined heart diseases; I10 Essential (primary) hypertension; F03.90 Unspecified dementia, unspecified severity, without behavioral disturbance, psychotic disturbance, mood disturbance, and anxiety; E03.9 Hypothyroidism, unspecified; D64.9 Anemia, unspecified; F32.9 Major depressive disorder, single episode, unspecified; F41.9 Anxiety disorder, unspecified; E78.5 Hyperlipidemia, unspecified; Z96.641 Presence of right artificial hip joint; Z23 Encounter for immunization
CPT/HCPCS: 83516-90; 83520-90; 84484-ER; 86334-90; 86704-90; 97110-GP; 97116-GP; 97161-GP; 97165-GO; 97530-GO; 97530-GP; 97535-GO; G0008; G0378; G0472; J1650; J2405; P9047; Q9967

== ENCOUNTER 2018-04-21 10:23 | Observation (INO) | payer OTHER | END 2018-04-24 16:00 | LOC: F2W 12:15 ==

== ENCOUNTER 2018-05-23 17:52 | Observation (INO) | payer OTHER ==
--- NOTE | 2018-05-23 18:42 | EDPHY ---
H & P Time Seen by Provider: 05/23/18 18:15 HPI/ROS: CHIEF COMPLAINT: Dizzy, shortness of breath HISTORY OF PRESENT ILLNESS: The patient is a 78-year-old female with a history of nephrotic syndrome and hypertension who presents emergency department with complaints of dizziness. Patient states that she feels as though she is unsteady and has difficulty walking. She was concerned that this may be secondary to her blood pressure. She measured her blood pressure at home and it was 198 systolic. She took her blood pressure medication at 5:00 p.m.. Patient also has increasing shortness of breath. No cough. No fever. No chest pain. Patient denies any focal weakness or numbness. No visual change. Patient states that she was in the hospital recently with a pleural effusion secondary to her nephrotic syndrome. She also had uncontrolled hypertension. REVIEW OF SYSTEMS: 10 systems were reveiwed and are negative with the exception of the elements mentioned in the history of present illness. Past Medical/Surgical History: Includes nephrotic syndrome, anxiety, hypertension, pleural effusion Smoking Status: Former smoker Physical Exam: Vitals noted. 148/79 GENERAL: Well-appearing, in no acute distress, alert. HEENT: Eyes normal to inspection, normal pharynx, no signs of dehydration. NECK: Normal, supple. RESPIRATORY: Clear to auscultation bilaterally, no rales, rhonchi or wheezing. CVS: Regular rate and rhythm, no rubs, murmurs, or gallops. ABDOMEN: Soft, nontender, nondistended, no organomegaly. BACK: Normal to inspection, no CVA tenderness. SKIN: Normal color, no rash, warm, dry. No pallor. EXTREMITIES: No pedal edema, no calf tenderness, no Homans sign or cords, no joint swelling. NEURO/PSYCH: Higher functions: Alert and Oriented x3. Minimally slurred speech. Normal mood and affect. Cranial nerves: Normal as tested. Cerebellar: Slight past pointing with a right hand. Slightly unsteady heel to abernathy. Patient is unable to stand at the bedside due to her dizziness.. Peripheral exam: Normal motor exam. Normal sensation. Constitutional: Initial Vital Signs Temperature (C) 36.7 C 05/23/18 18:08 Heart Rate 89 05/23/18 18:08 Respiratory Rate 18 05/23/18 18:08 Blood Pressure 148/79 H 05/23/18 18:08 O2 Sat (%) 93 05/23/18 18:08 O2 Delivery Mode Room Air Allergies/Adverse Reactions: gluten Allergy (Intermediate, Verified 05/23/18 18:08) Abdominal Pain Home Medications: Medication Instructions Recorded Cholecalciferol Vit D3 [Vitamin D3 1,000 units PO DAILY 04/10/18 (*)] Multivitamins [Multivitamin (*)] 1 each PO DAILY 04/10/18 PARoxetine HCL [Paxil 10mg (*)] 10 mg PO DAILY 04/10/18 Acetaminophen [Tylenol 325mg (*)] 650 mg PO Q4HRS PRN tab 04/19/18 Carvedilol [Coreg (*)] 6.25 mg PO BIDMEAL tab 04/19/18 Melatonin [Melatonin 3 MG (*)] 3 mg PO HS tab 04/19/18 Polyethylene Glycol 3350 [Miralax 17 gm PO DAILY PRN pkt 04/19/18 17 gm (*)] Sennosides/Docusate Sodium 1 - 2 tab PO BID tab 04/19/18 [Senokot-S] hydrALAZINE [Apresoline] 25 mg PO TID tab 04/19/18 Atorvastatin Calcium [Lipitor 20 20 mg PO HS 04/21/18 mg (*)] Lisinopril [Zestril 20 mg (*)] 20 mg PO BID 04/21/18 amLODIPine BESYLATE [Norvasc 10 mg 10 mg PO HS 04/21/18 (*)] Levothyroxine [Synthroid 88 mcg 88 mcg PO DAILY AT 6AM #1 tab 04/23/18 (*)] Potassium Chloride Po [Klor 20 meq PO BID #10 pkt 04/23/18 Packets 20 meq (*)] Bumetanide [Bumex (*)] 1 mg PO BIDDIUR tab 04/24/18 Ondansetron Odt [Zofran Odt 4 mg 4 mg PO Q6H PRN tab 04/24/18 (*)] Medical Decision Making - Diagnostics Imaging Results: Imaging Impressions Head CT 05/23/18 18:37 Impression: 1. No evidence for an acute intracranial abnormality. 2. Mild periventricular white matter change that can be seen with small vessel ischemic disease. 3. Mild generalized cerebral atrophy Results called and discussed with Flores Peter M.D., on May 23, 2018 at 1915. ED Course/Re-evaluation: In the emergency department I discussed possible etiologies with the patient and daughter. I answered all her questions. IV was placed. Laboratory studies , EKG, chest x-ray, head CT were ordered. Informed Dr. Paulino that the patient was in the emergency department and would be admitted Patient is a low sodium of 129. CBC is being re-sent to lab. Trop is negative I discussed the case with Dr. Lopez. He will admit the patient. Differential Diagnosis: My differential includes but is not limited to ischemic CVA, hemorrhagic CVA, hypertensive emergency, hypertensive urgency, electrolyte abnormality, sugar abnormality, pleural effusion, ACS, acute DE - Data Points Laboratory Results: Laboratory Results 05/23/18 19:38 05/23/18 19:38 05/23/18 05/23/18 05/23/18 19:38 19:38 19:38 WBC RBC Hgb Hct MCV MCH MCHC RDW Plt Count MPV Neut % (Auto) Lymph % (Auto) Garrard % (Auto) Eos % (Auto) Baso % (Auto) Nucleat RBC Rel Count Absolute Neuts (auto) Absolute Lymphs (auto) Absolute Monos (auto) Absolute Eos (auto) Absolute Basos (auto) Absolute Nucleated RBC Immature Gran % Immature Gran # PT Pending INR Pending APTT Pending Sodium 129 mEq/L L mEq/L (135-145) Potassium 4.8 mEq/L mEq/L (3.5-5.2) Chloride 103 mEq/L mEq/L (97-110) Carbon Dioxide 25 mEq/l mEq/l (22-31) Anion Gap 1 mEq/L L mEq/L (6-14) BUN 32 mg/dL H mg/dL (7-23) Creatinine 0.9 mg/dL mg/dL (0.6-1.0) Estimated GFR > 60 Glucose 83 mg/dL mg/dL (70-100) Calcium 7.9 mg/dL L mg/dL (8.5-10.4) POC Troponin I 0.01 ng/mL ng/mL (0.00-0.08) NT-Pro-B Natriuret Pep Pending 05/23/18 19:38 WBC REJ RBC REJ Hgb REJ Hct REJ MCV REJ MCH REJ MCHC REJ RDW REJ Plt Count REJ MPV REJ Neut % (Auto) REJ Lymph % (Auto) REJ Garrard % (Auto) REJ Eos % (Auto) REJ Baso % (Auto) REJ Nucleat RBC Rel Count REJ Absolute Neuts (auto) REJ Absolute Lymphs (auto) REJ Absolute Monos (auto) REJ Absolute Eos (auto) REJ Absolute Basos (auto) REJ Absolute Nucleated RBC REJ Immature Gran % REJ Immature Gran # REJ PT INR APTT Sodium Potassium Chloride Carbon Dioxide Anion Gap BUN Creatinine Estimated GFR Glucose Calcium POC Troponin I NT-Pro-B Natriuret Pep Point of Care Test Results: Chemistry 05/23/18 19:38 POC Troponin I 0.01 ng/mL ng/mL (0.00-0.08) Departure - Departure Disposition: [facility] Inpatient Acute Clinical Impression: Shortness of breath, Dizziness, Hyponatremia Condition: Fair
[2018-05-23 20:13] LABS: INR 0.83 (0.83-1.16); PROTIME(PATIENT) 11.1 SEC (12.0-15.0)
--- NOTE | 2018-05-23 20:34 | PDGENHP ---
History and Physical - Chief Complaint weakness - History of Present Illness The patient is a 78-year-old female with past medical history of labile hypertension, nephrotic syndrome, cognitive decline, hyponatremia, hypothyroid, diastolic dysfunction who was brought into the emergency room by her daughter for concerns of increased weakness. Apparently today the patient's blood pressure was quite high and she became concerned and called her daughter. When her daughter got there she said that she was feeling weak and because of the blood pressure they decided to come to the emergency room. The patient could not tell me much more about why she was in the emergency room. I was able to speak with the daughter who said that she was concerned that she was weak and her blood pressure was very high. Apparently there is an ongoing evaluation for some chronic dizziness. They have an appointment to see gordo Cano for this. In the emergency room she says she now feels better, she has no complaints of nausea vomiting dizziness weakness chest pain shortness of breath. She denied any diarrhea constipation bloody or black stools or any other symptoms History Information - Allergies/Home Medication List Allergies/Adverse Reactions: gluten Allergy (Intermediate, Verified 05/23/18 18:08) Abdominal Pain Home Medications: Cholecalciferol Vit D3 [Vitamin D3 (*)] 1,000 units PO DAILY 04/10/18 [Last Taken 04/21/18 09:00] Multivitamins [Multivitamin (*)] 1 each PO DAILY 04/10/18 [Last Taken 04/21/18] PARoxetine HCL [Paxil 10mg (*)] 10 mg PO DAILY 04/10/18 [Last Taken 04/21/18] Atorvastatin Calcium [Lipitor 20 mg (*)] 20 mg PO HS 04/21/18 [Last Taken ] Lisinopril [Zestril 20 mg (*)] 20 mg PO BID 04/21/18 [Last Taken 04/21/18 09:00] amLODIPine BESYLATE [Norvasc 10 mg (*)] 10 mg PO HS 04/21/18 [Last Taken ] I have personally reviewed and updated: family history, medical history, social history, surgical history - Past Medical History Additional medical history: per HPI in addition to hyperlipidemia, depression - Surgical History Reports: no pertinent surgical hx - Family History Positive for: non-pertinent Additional family history: mother and father both with CAD s/p CABG, HTN. no history of kidney disease - Social History Smoking Status: Former smoker Additional social history: Lives independently at [place]. Daughter is MDPOA. Review of Systems Review of Systems: ROS: 10pt was reviewed & negative except for what was stated in HPI & below Physical Exam Physical Exam: Temp Pulse Resp BP Pulse Ox 36.7 C 89 18 148/79 H 93 05/23/18 18:08 05/23/18 18:08 05/23/18 18:08 05/23/18 18:08 05/23/18 18:08 Constitutional: no apparent distress, appears nourished, not in pain Eyes: PERRL, anicteric sclera, EOMI Ears, Nose, Mouth, Throat: moist mucous membranes, hearing normal, ears appear normal, no oral mucosal ulcers Cardiovascular: regular rate and rhythym, no murmur, rub, or gallop, No edema Respiratory: no respiratory distress, no rales or rhonchi, clear to auscultation Gastrointestinal: normoactive bowel sounds, soft, non-tender abdomen, no palpable masses Genitourinary: no bladder fullness, no bladder tenderness Skin: warm, normal color, no rashes or abrasions, no fluctuance, no induration, No mottled Musculoskeletal: full muscle strength, no muscle tenderness, normal joint ROM, no joint effusions Psychiatric: interacting appropriately, not anxious, not encephalopathic, thought process linear Lymph, Heme, Immunologic: no cervical LAD, no supraclavicular LAD Lab Data & Imaging Review 05/23/18 19:38 05/23/18 19:38 WBC REJ 05/23/18 19:38 RBC REJ 05/23/18 19:38 Hgb REJ 05/23/18 19:38 Hct REJ 05/23/18 19:38 MCV REJ 05/23/18 19:38 MCH REJ 05/23/18 19:38 MCHC REJ 05/23/18 19:38 RDW REJ 05/23/18 19:38 Plt Count REJ 05/23/18 19:38 MPV REJ 05/23/18 19:38 Neut % (Auto) REJ 05/23/18 19:38 Lymph % (Auto) REJ 05/23/18 19:38 [place] % (Auto) REJ 05/23/18 19:38 Eos % (Auto) REJ 05/23/18 19:38 Baso % (Auto) REJ 05/23/18 19:38 Nucleat RBC Rel Count REJ 05/23/18 19:38 Absolute Neuts (auto) REJ 05/23/18 19:38 Absolute Lymphs (auto) REJ 05/23/18 19:38 Absolute Monos (auto) REJ 05/23/18 19:38 Absolute Eos (auto) REJ 05/23/18 19:38 Absolute Basos (auto) REJ 05/23/18 19:38 Absolute Nucleated RBC REJ 05/23/18 19:38 Immature Gran % REJ 05/23/18 19:38 Immature Gran # REJ 05/23/18 19:38 PT 11.1 SEC (12.0-15.0) L 05/23/18 19:38 INR 0.83 (0.83-1.16) 05/23/18 19:38 APTT 21.7 SEC (23.0-38.0) L 05/23/18 19:38 Sodium 129 mEq/L (135-145) L 05/23/18 19:38 Potassium 4.8 mEq/L (3.5-5.2) 05/23/18 19:38 Chloride 103 mEq/L (97-110) 05/23/18 19:38 Carbon Dioxide 25 mEq/l (22-31) 05/23/18 19:38 Anion Gap 1 mEq/L (6-14) L 05/23/18 19:38 BUN 32 mg/dL (7-23) H 05/23/18 19:38 Creatinine 0.9 mg/dL (0.6-1.0) 05/23/18 19:38 Estimated GFR > 60 05/23/18 19:38 Glucose 83 mg/dL (70-100) 05/23/18 19:38 Calcium 7.9 mg/dL (8.5-10.4) L 05/23/18 19:38 POC Troponin I 0.01 ng/mL (0.00-0.08) 05/23/18 19:38 Assessment & Plan Assessment: 78-year-old female past medical history of dementia, hyponatremia, hypertension , nephrotic syndrome here with high blood pressure and weakness Weakness- patient says that her symptoms seem to correlate with her high blood pressure. I reviewed the CT of her head and there is no acute intracranial abnormality. She has no focal neurologic deficits. Currently says she feels quite a bit better. She denied any dizziness to me currently as well. She does have a hyponatremia which is chronic but mildly worse tonight and could be contributing to her symptoms. -PT OT -correct electrolyte imbalance -monitor on telemetry -could consider Neurology consultation as she is already planning on seeing Dr. Cano for dizziness/weakness Hyponatremia- she has chronic hyponatremia which has always been fairly mild. Sodium today down to 129. She looks euvolemic to me. -check urine studies -trial of a small bolus of intravenous saline with repeat sodium Hypertension- systolic blood pressure elevated to as high as 190 per the daughter. Seemed to resolve in the emergency room as her blood pressure was 148 systolic. She takes multiple medications for this -resume home medications -add p.r.n. Hydralazine for systolics over 170 Nephrotic syndrome- has seen Dr. Paulino in the past as well as Dr. Hunt. Renal function seems to be at about baseline with creatinine 1. 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 -continue diuretics -Monitor renal function hypothyroid- resume synthroid. check tsh. Prophylaxis- SCDs and heparin Fluids- p.o. Electrolytes- mild hyponatremia Nutrition -regular diet Cor- full per daughter Dispo- observation for weakness and high blood pressure
[2018-05-23] MEDS ORDERED: ONDANSETRON DISINTEGRATING 4 MG TAB PO PRN (21:20)
[2018-05-23] MEDS ORDERED: ONDANSETRON 4 MG/2 ML VIAL IVP PRN (21:20)
[2018-05-23 21:45] LABS: PLATELET COUNT 333 10^3/uL (150-400)
[2018-05-24] MEDS: HEPARIN 5,000 UNIT/0.5 ML INJ SC SCH ×4 (01:20→21:01)
[2018-05-24 04:52] LABS: PLATELET COUNT 300 10^3/uL (150-400)
[2018-05-24] MEDS: hydrALAZINE 20 MG/ML VIAL IVP PRN ×2 (06:46→21:17)
[2018-05-24] MEDS ORDERED: LISINOPRIL 20 MG TAB PO SCH (09:00)
[2018-05-24] MEDS: PARoxetine HCL 10 MG TAB PO SCH (10:06)
[2018-05-24] MEDS: amLODIPine BESYLATE 5 MG TAB PO SCH (10:06)
[2018-05-24] MEDS: CARVEDILOL 6.25 MG TAB PO SCH ×2 (10:12→16:46)
[2018-05-24] MEDS: LEVOTHYROXINE 88 MCG TAB PO SCH (10:13)
--- NOTE | 2018-05-24 11:42 | ASMTCMCOM ---
CM Note CM Note Notes: 05/24/2018 Case Management Note Discussed pt during rounds this morning. Pt admitted for HTN and dizziness. PT recommending SNF rehab. Pt has stayed at [facility] in Mar and April 2018. Met w/pt. Pt unable to recall name of rehab. Requested case management contact daughter Kim. Wilson can be reached at [phone]. Katie in agreement with need for SNF rehab. Requested return to [facility]. Faxed referral to [facility] via [employer]. Requested auth. Case Management d/c poc: [facility] rehab pending acceptance and authorization. Case Management to follow. Date Signed: 05/24/2018 11:42 AM Electronically Signed By:Wendy Maurer RN
[2018-05-24] MEDS: ACETAMINOPHEN 325 MG TAB PO PRN (12:30)
--- NOTE | 2018-05-24 12:47 | HOSPPROG ---
Hospitalist Progress Note Assessment/Plan: 78-year-old female past medical history of dementia, hyponatremia, hypertension , nephrotic syndrome here with high blood pressure and weakness #Gen Weaknesss -PT/OT #Hyponatremia -much improved with NS and holding diuretics. cont to hold diuretics. stop IVF #HTN -on several meds at home, will adjust -change Lisinopril to 40mg once daily -Cont Amlodipine 5mg daily, if still elevated tomorrow, will increase to 10mg -Hold home hydralazine -cont Carvedilol at home dose -PRN IV Hydralazine #Nephrotic syndrome- has seen Dr. Paulino in the past as well as Dr. Hunt. Renal function seems to be at about baseline with creatinine 1. 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 -Holding diuretics for now -Monitor renal function #hypothyroid- cont synthroid. #cognitive delay -cog eval Prophylaxis- SCDs and heparin Nutrition -regular diet Cor- full per daughter Dispo- change to inpatient. May need SNF Subjective: no cp or sob. still feels weak. bp is elevated Objective: Vital Signs Temp Pulse Resp BP Pulse Ox 36.7 C 83 18 160/87 H 91 L 05/24/18 10:59 05/24/18 10:59 05/24/18 10:59 05/24/18 10:59 05/24/18 10:59 Laboratory Results 05/24/18 03:18 05/24/18 03:18 05/23/18 05/24/18 05/25/18 05:59 05:59 05:59 Output Total 750 Balance -750 PT 11.1 SEC (12.0-15.0) L 05/23/18 19:38 INR 0.83 (0.83-1.16) 05/23/18 19:38 - Physical Exam Constitutional: no apparent distress Eyes: PERRL, EOMI Ears, Nose, Mouth, Throat: moist mucous membranes, hearing normal Cardiovascular: regular rate and rhythym, No edema Respiratory: no respiratory distress, no rales or rhonchi, clear to auscultation Gastrointestinal: normoactive bowel sounds, soft, non-tender abdomen Skin: warm Psychiatric: interacting appropriately, not anxious, not encephalopathic Lymph, Heme, Immunologic: No petechiae ICD10 Worksheet Patient Problems: Problems Problem Status Onset Dizziness Acute Hyponatremia Acute Shortness of breath Acute Chest pain Acute Pleural effusion Acute
[2018-05-24] MEDS ORDERED: LISINOPRIL 20 MG TAB PO ONE (13:00)
[2018-05-24] MEDS: ATORVASTATIN CALCIUM 20 MG TAB PO SCH (16:45)
[2018-05-25] MEDS: hydrALAZINE 20 MG/ML VIAL IVP PRN ×3 (04:34→21:26)
[2018-05-25] MEDS: HEPARIN 5,000 UNIT/0.5 ML INJ SC SCH ×3 (06:00→21:22)
[2018-05-25] MEDS: LEVOTHYROXINE 88 MCG TAB PO SCH (06:00)
[2018-05-25] MEDS: CARVEDILOL 6.25 MG TAB PO SCH ×2 (09:04→17:30)
[2018-05-25] MEDS: LISINOPRIL 20 MG TAB PO SCH (09:04)
[2018-05-25] MEDS: amLODIPine BESYLATE 5 MG TAB PO SCH (09:05)
[2018-05-25] MEDS: PARoxetine HCL 10 MG TAB PO SCH (09:05)
--- NOTE | 2018-05-25 11:59 | GCON ---
[f rep st] CONSULTATION NEUROLOGY CONSULT DATE OF CONSULTATION: 05/25/2018 CHIEF COMPLAINT: Dizziness. HISTORY OF PRESENT ILLNESS: The patient is a very pleasant 78-year-old lady who has chronic medical problems, including nephrotic syndrome, labile hypertension, cognitive changes, hyponatremia, thyroid disease, and cardiac diastolic dysfunction. She came to the emergency department because her daughter was concerned about a blood pressure reading at home being in the 190s and corresponding generalized weakness. She was admitted for further blood pressure management. In terms of the chief complaint of dizziness, what the patient says it is more of a lightheadedness. We discussed correlations with this symptom and there appears to be a clear temporal correlation with her blood pressure. She feels this lightheaded feeling when her blood pressure goes very high. She denies vertigo. She denies any focal motor or sensory symptoms with any of these presenting symptoms. She is aware that she has some cognitive changes over the years. She does not know of any family history of dementia. She lives in independent living at this point, and her daughter has financial power-of- advertiser and takes care of paying bills, etc. No seizure history. For past medical history, social history, family history, home medications, allergies, see Dr. Lopez's history and physical. REVIEW OF SYSTEMS: A review of systems was done, 10-point review was only pertinent to the HPI. PHYSICAL EXAMINATION: VITAL SIGNS: Blood pressure remains elevated today with systolic in the 180s; however, she has had lower blood pressures while here in the hospital from the 140 to 160s systolic. She is afebrile at 36.7, and respiratory rate 14 times per minute. NEUROLOGIC: Generally, the patient is awake and alert. She is very pleasant on general exam. She has no meningismus or toxic abnormalities on gross exam. Her higher mental function reveals a 10/ 30 on MMSE performed by therapies. She has no obvious aphasia. She names 5/5, follows commands 5 5, repeats 5/5. On motor exam, she has no focal weakness. Tone and reflexes are normal. On sensory exam, she has normal light touch in all 4 extremities. Coordination is normal in all 4 extremities. IMPRESSION/PLAN: 1. Lightheadedness. 2. Labile hypertension. 3. Cognitive decline. The patient's primary complaint of lightheadedness may be related to her labile hypertension. She endorses more of a presyncopal, lightheaded feeling with high systolic pressures. I would recommend ongoing inpatient and outpatient blood pressure management. She may need to see Cardiology as an outpatient due to her labile hypertension. I think this should be addressed first and may certainly resolve her feelings of lightheadedness. In addition, she has some significant cognitive abnormalities on mini-mental status testing with a 10/30. I recommend that social workers/ Case Management help with this patient and her family in terms of the optimal living situation as an outpatient. Finally, I will see her in around 8 to 12 weeks post-hospital discharge to help with ongoing management of her memory decline. At that point, we could consider adding a medication, such as Aricept. No further recommendations now. I left detailed voice message for the hospitalist team. We will continue to follow as needed. Please do not hesitate to call if there are any questions or changes in this patient's neurologic status. Seventy total minutes floor time today; over 50% in direct counseling and coordination of care. I attempted to call her daughter as well, but she did not apple picker the phone. Thank you for this consultation. /[id number]/MODL MTDD
--- NOTE | 2018-05-25 12:22 | ASMTCMCOM ---
CM Note CM Note Notes: CM received notice [facility] is able to accept patient, CM call to [facility] to confirm and we will send updates. CM called daughter Katie, left message stating her mom can go to [facility] when medically stable. CM to follow. D/C Plan: [facility]. Date Signed: 05/25/2018 12:21 PM Electronically Signed By:India Esparza
--- NOTE | 2018-05-25 14:46 | ASMTCMCOM ---
CM Note CM Note Notes: CM received call from patients daughter Katie. She shares she would prefer patient to discharge home and resume home health with [facility]. The patient has a private caregiver who comes twice a day. Katie shares though her mom had a good experience at [facility] in the past she thinks going home will be more beneficial when considering her cognitive issues. CM to share with the team, CM to follow. D/C plan: Home with [facility] vs. [facility] SNF. Date Signed: 05/25/2018 02:45 PM Electronically Signed By:India Esparza
[2018-05-25] MEDS ORDERED: amLODIPine BESYLATE 5 MG TAB PO ONE (15:15)
--- NOTE | 2018-05-25 16:07 | HOSPPROG ---
Hospitalist Progress Note Assessment/Plan: 78-year-old female past medical history of dementia, hyponatremia, hypertension , nephrotic syndrome here with high blood pressure and weakness #Gen Weaknesss -PT/OT #Hyponatremia -much improved with NS and holding diuretics. cont to hold diuretics. stopped IVF #HTN -on several meds at home, -Lisinopril was increased to once daily -Amlodipine will be increased today to 10mg daily -Hold home hydralazine for now, but she is getting IV PRN. If still hypertensive tomorrow would start Hydralazine 25mg TID -cont Carvedilol at home dose -PRN IV Hydralazine #Nephrotic syndrome- has seen Dr. Paulino in the past as well as Dr. Hunt. Renal function seems to be at about baseline with creatinine 1. 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 -Holding diuretics for now -Monitor renal function #hypothyroid- cont synthroid. #cognitive Decline -scored 10/30 mini mental -likely cannot live independently -CM is following -Neuro requests op follow up with them Prophylaxis- SCDs and heparin Nutrition -regular diet Cor- full per daughter Dispo- cont inpatient. May need SNF Subjective: no cp or sob. no n/v. still with elevated bp Objective: Vital Signs Temp Pulse Resp BP Pulse Ox 36.7 C 86 16 185/74 H 96 05/25/18 15:32 05/25/18 15:32 05/25/18 15:32 05/25/18 15:32 05/25/18 15:32 Laboratory Results 05/24/18 03:18 05/25/18 10:56 05/24/18 05/25/18 05/26/18 05:59 05:59 05:59 Intake Total 250 Output Total 750 Balance -750 250 PT 11.1 SEC (12.0-15.0) L 05/23/18 19:38 INR 0.83 (0.83-1.16) 05/23/18 19:38 - Physical Exam Constitutional: no apparent distress, chronically ill appearing Eyes: PERRL, EOMI Ears, Nose, Mouth, Throat: moist mucous membranes Cardiovascular: regular rate and rhythym Respiratory: no respiratory distress, no rales or rhonchi Gastrointestinal: normoactive bowel sounds, soft, non-tender abdomen Skin: warm Neurologic: No AAOx3 Psychiatric: interacting appropriately, not anxious, encephalopathic Lymph, Heme, Immunologic: No petechiae ICD10 Worksheet Patient Problems: Problems Problem Status Onset Dizziness Acute Hyponatremia Acute Shortness of breath Acute Chest pain Acute Pleural effusion Acute
[2018-05-25] MEDS: ATORVASTATIN CALCIUM 20 MG TAB PO SCH (17:31)
[2018-05-26] MEDS: LEVOTHYROXINE 88 MCG TAB PO SCH (05:18)
[2018-05-26] MEDS: HEPARIN 5,000 UNIT/0.5 ML INJ SC SCH ×3 (05:19→22:11)
[2018-05-26] MEDS: hydrALAZINE 20 MG/ML VIAL IVP PRN ×2 (05:19→14:28)
[2018-05-26] MEDS: ACETAMINOPHEN 325 MG TAB PO PRN ×3 (05:34→22:12)
[2018-05-26] MEDS: PARoxetine HCL 10 MG TAB PO SCH (08:39)
[2018-05-26] MEDS: CARVEDILOL 6.25 MG TAB PO SCH ×2 (08:39→17:39)
[2018-05-26] MEDS: amLODIPine BESYLATE 5 MG TAB PO SCH (08:40)
[2018-05-26] MEDS: LISINOPRIL 20 MG TAB PO SCH (08:40)
--- NOTE | 2018-05-26 17:05 | HOSPPROG ---
Hospitalist Progress Note Assessment/Plan: 8-year-old female past medical history of dementia, hyponatremia, hypertension, nephrotic syndrome here with high blood pressure and weakness Gen Weaknesss PT/OT Hyponatremia much improved with NS and holding diuretics. cont to hold diuretics. stopped IVF HTN continue lisinopril and amlodipine increase carvedilol htn not causing dizziness Nephrotic syndrome- has seen Dr. Paulino in the past as well as Dr. Hunt. Renal function seems to be at about baseline with creatinine 1. 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 Holding diuretics for now Monitor renal function hypothyroid- cont synthroid. cognitive Decline scored 10/30 mini mental ikely cannot live independently CM is following Neuro requests op follow up with them Prophylaxis- SCDs and heparin Nutrition -regular diet Cor- full per daughter Dispo- cont inpatient. May need SNF Objective: Vital Signs Temp Pulse Resp BP Pulse Ox 36.9 C 93 13 181/94 H 90 L 05/26/18 15:55 05/26/18 15:55 05/26/18 15:55 05/26/18 15:55 05/26/18 15:55 Laboratory Results 05/24/18 03:18 05/25/18 10:56 05/25/18 05/26/18 05/27/18 05:59 05:59 05:59 Intake Total 250 800 Output Total 600 Balance 250 200 PT 11.1 SEC (12.0-15.0) L 05/23/18 19:38 INR 0.83 (0.83-1.16) 05/23/18 19:38 - Physical Exam Constitutional: no apparent distress, appears nourished Eyes: PERRL, anicteric sclera Ears, Nose, Mouth, Throat: moist mucous membranes, hearing normal Cardiovascular: regular rate and rhythym, no murmur, rub, or gallop, No systolic murmur Respiratory: no respiratory distress, no rales or rhonchi Gastrointestinal: normoactive bowel sounds, soft, non-tender abdomen Genitourinary: no bladder fullness, No briscoe in urethra Skin: warm, normal color Musculoskeletal: full muscle strength ICD10 Worksheet Patient Problems: Problems Problem Status Onset Dizziness Acute Hyponatremia Acute Shortness of breath Acute Chest pain Acute Pleural effusion Acute
[2018-05-26] MEDS: ATORVASTATIN CALCIUM 20 MG TAB PO SCH (17:38)
[2018-05-27] MEDS: ACETAMINOPHEN 325 MG TAB PO PRN (05:55)
[2018-05-27] MEDS: LEVOTHYROXINE 88 MCG TAB PO SCH (05:56)
[2018-05-27] MEDS: HEPARIN 5,000 UNIT/0.5 ML INJ SC SCH (05:56)
[2018-05-27] MEDS: LISINOPRIL 20 MG TAB PO SCH (08:31)
[2018-05-27] MEDS: amLODIPine BESYLATE 5 MG TAB PO SCH (08:32)
[2018-05-27] MEDS: CARVEDILOL 6.25 MG TAB PO SCH (08:32)
[2018-05-27 11:58] VITALS: BP 168/83
--- NOTE | 2018-05-27 14:11 | HOSPPROG ---
Hospitalist Progress Note Assessment/Plan: 8-year-old female past medical history of dementia, hyponatremia, hypertension, nephrotic syndrome here with high blood pressure and weakness Gen Weaknesss PT/OT Hyponatremia much improved with NS and holding diuretics. cont to hold diuretics. stopped IVF HTN will dc on home doses of meds Nephrotic syndrome- has seen Dr. Paulino in the past as well as Dr. Hunt. Renal function seems to be at about baseline with creatinine 1. 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 Holding diuretics for now Monitor renal function resume diuretics as outpt hypothyroid- cont synthroid. cognitive Decline scored 10/30 mini mental ikely cannot live independently CM is following Neuro requests op follow up with them Prophylaxis- SCDs and heparin Nutrition -regular diet Cor- full per daughter Dispo- home today w increased home care > 30 minutes discharged in afternoon as that was when daughter available to discuss plan Subjective: casrotid u/s w 50% stenosis but not flow limiting. daughter at bedside Objective: Vital Signs Temp Pulse Resp BP Pulse Ox 36.8 C 76 24 H 168/83 H 91 L 05/27/18 11:57 05/27/18 11:57 05/27/18 11:57 05/27/18 11:57 05/27/18 11:57 Laboratory Results 05/24/18 03:18 05/25/18 10:56 05/26/18 05/27/18 05/28/18 05:59 05:59 05:59 Intake Total 800 1350 Output Total 600 Balance 200 1350 PT 11.1 SEC (12.0-15.0) L 05/23/18 19:38 INR 0.83 (0.83-1.16) 05/23/18 19:38 - Physical Exam Constitutional: no apparent distress, appears nourished Eyes: PERRL, anicteric sclera Ears, Nose, Mouth, Throat: moist mucous membranes, hearing normal Cardiovascular: regular rate and rhythym, no murmur, rub, or gallop Respiratory: no respiratory distress, No no rales or rhonchi Gastrointestinal: normoactive bowel sounds, soft, non-tender abdomen Genitourinary: no bladder fullness, No briscoe in urethra Skin: warm, normal color Musculoskeletal: full muscle strength Neurologic: AAOx3 ICD10 Worksheet Patient Problems: Problems Problem Status Onset Dizziness Acute Hyponatremia Acute Shortness of breath Acute Chest pain Acute Pleural effusion Acute
--- NOTE | 2018-05-27 14:12 | PDIAF ---
- Diagnosis Diagnosis: htn Code Status: Full Code - Medication Management Discharge Medications: electronically signed and located in the Home Medication List. - Orders Services needed: Home Care, Registered Nurse, Physical Therapy, Occupational Therapy, Speech Language Pathologist Home Care Face to Face: I certify that this patient was under my care and that I had the required [id number] encounter meeting the encounter requirements on the discharge day. My findings support the fact that the patient is homebound as defined in Home Care Face to Face Continued: CMS Chapter 7 Medicare Benefits Manual 30.1.1 , The condition of the patient is such that there exists a normal inability to leave home and consequently, leaving home would require a considerable and taxing effort. - Follow Up Care Current Providers and Referrals: Kina Jones MD [Primary Care Provider] - As per Instructions
--- NOTE | 2018-05-27 14:38 | ASMTLACE ---
LACE Length of stay for Answers: 4-6 days current admission Acuity / Level of Answers: Yes Care: Did the patient have an inpatient admission? Comorbidities - select Answers: Other Notes: HTN; Hypothyroid all that apply # of Emergency department Answers: 3-4 visits in the last 6 months Social determinants Answers: Mental health diagnosis (anxiety, depression, pers onality disorders, etc.) Score: 14 Date Signed: 05/27/2018 02:38 PM Electronically Signed By:HOLLY Gomez
--- NOTE | 2018-05-27 14:52 | ASMTDCNOTE ---
Case Management Discharge Discharge Order Complete? Answers: Yes Patient to Obtain Answers: Other Notes: [place] Medications Transportation Arranged Answers: Family/Friends EMTALA Complete Answers: No Case Management Transport Answers: No Form Complete Faxed Final Orders Answers: Yes Agency/Facility Transfer Answers: Yes Report Printed & Faxed to Receiving Agency Family Notified Answers: Yes Discharge Comments Notes: Pts case discussed w/ Dr. Anderson. Pt is being d/c'd today. CM met w/ pt and her daughter Katie. Katie reports that pt is current w/ [facility]. DC orders sent to [facility]. emailed Trena at [place] and notified her of the d/c. CM called [facility] and notified them that she is being discharged back to them today. Katie will arrange private duty caregivers to resume 2x/day. CM available for changes. Plan: [facility] [place] with [facility]; PT, OT, RN, SPL w/ private duty caregivers Date Signed: 05/27/2018 02:52 PM Electronically Signed By:HOLLY Gomez
--- NOTE | 2018-05-27 14:53 | ASDISCHSUM ---
Discharge Information Plan Status:Home with Home Health Medically Cleared to Leave:05/27/2018 Discharge Date:05/27/2018 CM D/C Disposition: ADT D/C Disposition: Projected Discharge Date:05/27/2018 11:00 AM Transportation at D/C: Discharge Delay Reason: Follow-Up Date:05/27/2018 11:00 AM Discharge Slot: Final Diagnosis: Placement Information Referral Type:*Assisted/SNF Referral ID:[id number] Provider Name: Address 1: Phone Number: Address 2: Fax Number: City: Selection Factors: State: Referral Type:*Home Health Care Services Referral ID:[id number] Provider Name:[facility] Address 1:[address] Address 2: City:[place] Selection Factors: State:[place] Patient Contact Information Contact Name:ADRIANA Relationship:Daughter Address:[address] Work Phone: City:[place] Alternate Phone: State/Zip Code:[place] [address] Email: Financial Information Financial Class:Medicare Advantage Plans Primary Plan Desc:[employer] Primary Plan Number:[id number] Secondary Plan Desc: Secondary Plan Number: Assessment Information LACE LACE Length of stay for Answers: 4-6 days current admission Acuity / Level of Answers: Yes Care: Did the patient have an inpatient admission? Comorbidities - select Answers: Other Notes: HTN; Hypothyroid all that apply # of Emergency department Answers: 3-4 visits in the last 6 months Social determinants Answers: Mental health diagnosis (anxiety, depression, pers onality disorders, etc.) Score: 14 Date Signed: 05/27/2018 02:38 PM Electronically Signed By:HOLLY Gomez [facility] CM Progress Note CM Note CM Note Notes: 05/24/2018 Case Management Note Discussed pt during rounds this morning. Pt admitted for HTN and dizziness. PT recommending SNF rehab. Pt has stayed at [facility] in Mar and April 2018. Met w/pt. Pt unable to recall name of rehab. Requested case management contact derick Wilson. Katie can be reached at [phone]. Katie in agreement with need for SNF rehab. Requested return to [facility]. Faxed referral to [facility] via [employer]. Requested auth. Case Management [facility] and [facility]. Case Management to follow. Date Signed: 05/24/2018 11:42 AM Electronically Signed By:Wendy Maurer RN [facility] CM Progress Note CM Note CM Note Notes: CM received notice [facility] is able to accept patient, CM call to [facility] to confirm and we will send updates. CM called derick Wilson, left message stating her mom can go to [facility] when medically stable. CM to follow. D/C Plan: [facility]. Date Signed: 05/25/2018 12:21 PM Electronically Signed By:India Esparza [facility] CM Progress Note CM Note CM Note Notes: CM received call from patients daughter Katie. She shares she would prefer patient to discharge home and resume home health with [facility]. The patient has a private caregiver who comes twice a day. Katie shares though her mom had a good experience at [facility] in the past she thinks going home will be more beneficial when considering her cognitive issues. CM to share with the team, CM to follow. D/C plan: Home with [facility] vs. [facility]. Date Signed: 05/25/2018 02:45 PM Electronically Signed By:India Esparza Case Management Discharge Plan Note Case Management Discharge Discharge Order Complete? Answers: Yes Patient to Obtain Answers: Other Notes: [place] Medications Transportation Arranged Answers: Family/Friends EMTALA Complete Answers: No Case Management Transport Answers: No Form Complete Faxed Final Orders Answers: Yes Agency/Facility Transfer Answers: Yes Report Printed & Faxed to Receiving Agency Family Notified Answers: Yes Discharge Comments Notes: Pts case discussed w/ Dr. Anderson. Pt is being d/c'd today. CM met w/ pt and her daughter Kim. Wilson reports that pt is current w/ [facility]. DC orders sent to [facility]. CM emailed Trena at [place] and notified her of the d/c. CM called [facility] and notified them that she is being discharged back to them today. Katie will arrange private duty caregivers to resume 2x/day. CM available for changes. Plan: [facility] with [facility]; PT, OT, RN, SPL w/ private duty caregivers Date Signed: 05/27/2018 02:52 PM Electronically Signed By:HOLLY Gomez Intervention Information
--- NOTE | 2018-05-27 15:59 | GDS ---
[f rep st] DISCHARGE SUMMARY DISCHARGE DIAGNOSES: 1. Hyponatremia, now resolved. 2. Hypertension. 3. Generalized weakness. 4. Dizziness. That is probably actually an ophthalmologic issue. 5. History nephrotic syndrome. 6. Diastolic dysfunction. Please see admission history and physical by Dr. Axel Lopez. The patient presented with a variety of symptoms including weakness and dizziness. She was found to have sodium of 129. She was perhaps a bit over-diuresed. Chest x-ray showed a tiny left effusion. She did not have pulmonary edema. Seen by Neurology, recom mended outpatient followup. But there was no acute event. No stroke. She did have focal weakness. She was seen by PT and OT, who recommended occasional SNF and sometimes home care. They had decline d SNF because she had previously done poorly at a stay at [facility] following a hip fracture. I was able to discuss the case at length with the daughter today and then they wish to return home with an increase in home care. Someone administers her medicines. The daughter lives nearby and is active i n her care. Her antihypertensive regimen is unchanged. But I did advise them to make an appointment with her primary care physician doctor for followup, as it may need some titration. It was tinkered with while here. Regarding her dizziness, she had a carotid ultrasound which showed no flow-limiting stenosis, althoug h she did have 50% stenosis and, therefore, aspirin is added to her regimen. She had orthostatic vital signs checked and they were unremarkable. She is discharged home today. Greater than 30 minutes spent on this discharge. /[id number]/MODL
== END 2018-05-27 14:54 | disposition home or self-care (01) ==
LOC: F2W 21:59 → F3N 05-24 16:27
PROVIDERS: ADMIT Internal Medicine; ATTEND Internal Medicine
DX: I10 Essential (primary) hypertension (principal); E87.1 Hypo-osmolality and hyponatremia; R42 Dizziness and giddiness; I50.30 Unspecified diastolic (congestive) heart failure; R53.1 Weakness; N04.9 Nephrotic syndrome with unspecified morphologic changes
CPT/HCPCS: 70450; 71046; 92507; 92523; 93880; 96372; 97116; 97162; 97166; 97530; 97535; 99285; G0378; J0360; J1644; 84484-ER